=== PATIENT | female | born 1955 | race Caucasian/White ===

== ENCOUNTER 2017-03-21 18:42 | Inpatient (IN) | payer OTHER ==
[~2017-03-21] VITALS: Ht 170.2 cm; Wt 68.2 kg
[~2017-03-21 18:42] MED LIST: ATOR10TA88 PO; SODICRE2 OR; TRMCR130WC TOP
[2017-03-21] MEDS ORDERED: ANAS1TAB19 PO (18:53)
[2017-03-21] MEDS ORDERED: CHOL2000 PO (18:53)
[2017-03-21] MEDS ORDERED: SODIUM CHLORIDE 0.9% 1000ML 1,000 ML IV STA (19:15)
[2017-03-21] MEDS ORDERED: KETOROLAC TROMETHAMINE 15 MG/ML VIAL IV STA (19:15)
[2017-03-21 19:29] LABS: BASO % 0.5 %; BASO ABS # 0.04 K/uL (0-0.2); COMPLETE YES; EOS % 1.9 %; HEMATOCRIT 39.6 % (37-47); IG% 0.2 %; LYMPH % 28.1 %; LYMPH ABS # 2.33 K/uL (1.2-3.4); MEAN CELL VOLUME 90.8 fL (80-100); MEAN CORPUSCULAR HEMOGLOBIN 30.5 pg (25-34); MEAN CORPUSCULAR HGB CONC 33.6 g/dl (32-36); MEAN PLATELET VOLUME 10.1 fL (7.4-10.4); MONO % 8.2 %; NEUT % 61.1 %; PLATELET COUNT 233 K/uL (130-400); RED BLOOD COUNT 4.36 M/uL (4.2-5.4); WHITE BLOOD COUNT 8.29 K/uL (4.8-10.8)
[2017-03-21] MEDS ORDERED: OPTIRAY 320 IV PRN (19:30)
[2017-03-21 19:32] LABS: URINE APPEARANCE CLEAR (CLEAR); URINE BILIRUBIN NEG (NEG); URINE COLOR YELLOW; URINE EPITHELIAL CELL AUTO 0-5 /lpf (0-5); URINE NITRITE NEG (NEG); URINE SPECIFIC GRAVITY 1.013 (1.000-1.030); UROBILINOGEN NEG (NEG); ZZUR CULT IF INDIC CLEAN CATCH NO
[2017-03-21 19:33] LABS: MANUAL MICROSCOPIC REQUIRED? NO; REVIEW REQ? NO
[2017-03-21 19:37] LABS: BUN/CREATININE RATIO 19.6 (10-20); CALCIUM 9.9 mg/dl (8.5-10.1); CREATININE 0.77 mg/dl (0.60-1.20); POTASSIUM 3.6 mmol/L (3.5-5.1)
[2017-03-21] MEDS ORDERED: MoRPHine SULFATE 2 MG/ML CARP IV STA (19:47)
[2017-03-21] MEDS ORDERED: ONDANSETRON INJ 2 MG/ML 2 ML VIAL IV STA (19:47)
--- NOTE | 2017-03-21 20:42 | DIAGNOSTIC IMAGING REPORT ---
GALLBLADDER-ABD LIMITED CLINICAL HISTORY: 62 years-old Female presenting with ruq/epigastric pain, elevated LFTs. TECHNIQUE: Real-time grayscale and limited color Doppler ultrasound imaging of the abdomen limited to the right upper quadrant was performed. COMPARISON: None. FINDINGS: Pancreas: Visualized portions of the pancreatic head and body normal. Liver: Normal echogenicity and echotexture. The liver measures 14.8 cm in maximal sagittal dimension. No sonographic evidence of hepatic mass. Main portal vein patent with normal directional flow. Biliary: No intrahepatic biliary ductal dilatation. Common bile duct measures up to 8 mm in diameter. Gallbladder: Gallbladder wall thickening up to 4 mm. Gallstones noted. Trace pericholecystic fluid. No hyperemia of the gallbladder wall on color Doppler. Sonographic Champagne's sign negative. Right kidney: Normal in appearance and size, measuring 10.8 cm. No hydronephrosis. 5.1 cm simple cyst noted in the interpolar region. Ascites: None. IMPRESSION: 1. Cholelithiasis with equivocal findings for cholecystitis. The presence of extrahepatic biliary ductal dilatation could suggest distal biliary obstruction, although choledocholithiasis not sonographically apparent. Further evaluation with MRCP could be considered. If there is continuing clinical concern for cholecystitis, nuclear medicine hepatobiliary scan could be obtained. Electronically signed by: João Quinn M.D. 03/21/2017 8:40 PM Dictated Date/Time: 03/21/2017 8:37 PM
[2017-03-21] MEDS: LACTATED RINGER'S 1000ML 1,000 ML IV SCH (21:47)
--- NOTE | 2017-03-21 21:55 | EMERGENCY ROOM VISIT NOTE ---
History First contact with patient: 18:51 Chief Complaint: ABDOMINAL PAIN Stated Complaint: ABDOMINAL PAIN RADIATING TO BACK Nursing Triage Summary: Patient states "I started having pain just above my umbilicus on Friday. The pain was pretty severe and I was eating crackers, burnt toast and tums to see if that would help. The pain persisted into Friday and I started vomiting then too. After vomiting, the pain subsided. I was fine yesterday. After eating salad for lunch today, the pain started up again. I am to be leaving the country tomorrow so I wanted to be checked." Patient reports normal BMs. History of Present Illness The patient is a 62 year old female who presents to the Emergency Room with complaints of abdominal pain. The patient states that 3 days ago, she developed pain in her upper abdomen after eating lunch. She states that the pain radiated from her upper abdomen through to her back. She took Tums and ate burned toast without relief of the pain. She states the pain persisted throughout the night. When she woke up the next morning, she became nauseous and vomited one time. She states that after she vomited, her abdominal pain improved. She reports she felt okay the next day, but her pain returned after eating a lunch of a yogurt and salad today. The pain is just above her umbilicus and radiates into the back. She rates the discomfort a 6/10. She denies any aggravating or alleviating factors. She denies any nausea at this time. She denies urinary symptoms, chest pain, shortness of breath, changes in bowel movement or fevers. She denies any history of abdominal surgeries. She has had a previous lumpectomy for breast cancer and is otherwise very healthy. She denies any recent alcohol use. Review of Systems A complete 10 point review of systems was reviewed with the patient with pertinent positives and negatives as per history of present illness. All else were negative. Past Medical/Surgical History Medical Problems: (1) Pancreatitis Social History Smoking Status: Former Smoker Current/Historical Medications Scheduled Anastrozole (Arimidex), 1 MG PO QPM Atorvastatin (Lipitor), 1 TAB PO DAILY Cholecalciferol (Vitamin D3), 2,000 INTER.UNIT PO DAILY Physical Exam Vital Signs Date Time Temp Pulse Resp B/P (MAP) Pulse Ox O2 Delivery O2 Flow Rate FiO2 03/21/17 20:48 107 18 146/73 98 Room Air 03/21/17 18:45 36.6 94 16 162/81 98 Room Air Physical Exam VITALS: Vitals are noted on the nurse's note and reviewed by myself. Vital signs stable. GENERAL: This is a 62-year-old female, in no acute distress, nondiaphoretic, well-developed well-nourished. EARS: External auditory canals clear, tympanic membranes pearly villanueva without erythema or effusion bilaterally. EYES: Pupils equal round and reactive to light and accommodation. MOUTH: Mucous membranes moist. NECK: Supple without nuchal rigidity. HEART: Regular rate and rhythm without murmurs gallops or rubs. LUNGS: Clear to auscultation bilaterally without wheezes, rales or rhonchi. ABDOMEN: Positive bowel sounds x 4. Soft, nondistended. There is moderate tenderness to palpation and slight guarding in the epigastric region. Negative Champagne sign. NEURO: Patient was alert and oriented to person place and time. Medical Decision & Procedures ER Provider Diagnostic Interpretation: GALLBLADDER-ABD LIMITED CLINICAL HISTORY: 62 years-old Female presenting with ruq/epigastric pain, elevated LFTs. TECHNIQUE: Real-time grayscale and limited color Doppler ultrasound imaging of the abdomen limited to the right upper quadrant was performed. COMPARISON: None. FINDINGS: Pancreas: Visualized portions of the pancreatic head and body normal. Liver: Normal echogenicity and echotexture. The liver measures 14.8 cm in maximal sagittal dimension. No sonographic evidence of hepatic mass. Main portal vein patent with normal directional flow. Biliary: No intrahepatic biliary ductal dilatation. Common bile duct measures up to 8 mm in diameter. Gallbladder: Gallbladder wall thickening up to 4 mm. Gallstones noted. Trace pericholecystic fluid. No hyperemia of the gallbladder wall on color Doppler. Sonographic Champagne's sign negative. Right kidney: Normal in appearance and size, measuring 10.8 cm. No hydronephrosis. 5.1 cm simple cyst noted in the interpolar region. Ascites: None. IMPRESSION: 1. Cholelithiasis with equivocal findings for cholecystitis. The presence of extrahepatic biliary ductal dilatation could suggest distal biliary obstruction, although choledocholithiasis not sonographically apparent. Further evaluation with MRCP could be considered. If there is continuing clinical concern for cholecystitis, nuclear medicine hepatobiliary scan could be obtained. Laboratory Results 9/15/17 19:02 Red Blood Count 4.36, Mean Corpuscular Volume 90.8, Mean Corpuscular Hemoglobin 30.5, Mean Corpuscular Hemoglobin Concent 33.6, Mean Platelet Volume 10.1, Neutrophils (%) (Auto) 61.1, Lymphocytes (%) (Auto) 28.1, Monocytes (%) (Auto) 8.2, Eosinophils (%) (Auto) 1.9, Basophils (%) (Auto) 0.5, Neutrophils # (Auto) 5.06, Lymphocytes # (Auto) 2.33, Monocytes # (Auto) 0.68, Eosinophils # (Auto) 0.16, Basophils # (Auto) 0.04 03/21/17 19:02 Test 03/21/17 18:55 03/21/17 19:02 Urine Color YELLOW Urine Appearance CLEAR (CLEAR) Urine pH 8.0 (4.5-7.5) Urine Specific [place] 1.013 (1.000-1.030) Urine Protein NEG (NEG) Urine Glucose (UA) NEG (NEG) Urine Ketones NEG (NEG) Urine Occult Blood TRACE (NEG) Urine Nitrite NEG (NEG) Urine Bilirubin NEG (NEG) Urine Urobilinogen NEG (NEG) Urine Leukocyte Esterase TRACE (NEG) Urine WBC (Auto) 1-5 /hpf (0-5) Urine RBC (Auto) 0-4 /hpf (0-4) Urine Hyaline Casts (Auto) 0 /lpf (0-5) Urine Epithelial Cells (Auto) 0-5 /lpf (0-5) Urine Bacteria (Auto) NEG (NEG) White Blood Count 8.29 K/uL (4.8-10.8) Red Blood Count 4.36 M/uL (4.2-5.4) Hemoglobin 13.3 g/dL (12.0-16.0) Hematocrit 39.6 % (37-47) Mean Corpuscular Volume 90.8 fL (80-100) Mean Corpuscular Hemoglobin 30.5 pg (25-34) Mean Corpuscular Hemoglobin Concent 33.6 g/dl (32-36) Platelet Count 233 K/uL (130-400) Mean Platelet Volume 10.1 fL (7.4-10.4) Neutrophils (%) (Auto) 61.1 % Lymphocytes (%) (Auto) 28.1 % Monocytes (%) (Auto) 8.2 % Eosinophils (%) (Auto) 1.9 % Basophils (%) (Auto) 0.5 % Neutrophils # (Auto) 5.06 K/uL (1.4-6.5) Lymphocytes # (Auto) 2.33 K/uL (1.2-3.4) Monocytes # (Auto) 0.68 K/uL (0.11-0.59) Eosinophils # (Auto) 0.16 K/uL (0-0.5) Basophils # (Auto) 0.04 K/uL (0-0.2) RDW Standard Deviation 40.8 fL (36.4-46.3) RDW Coefficient of Variation 12.1 % (11.5-14.5) Immature Granulocyte % (Auto) 0.2 % Immature Granulocyte # (Auto) 0.02 K/uL (0.00-0.02) Anion Gap 7.0 mmol/L (3-11) Est Creatinine Clear Calc Drug Dose 73.2 ml/min Estimated GFR () 96.6 Estimated GFR (Non- 83.3 BUN/Creatinine Ratio 19.6 (10-20) Calcium Level 9.9 mg/dl (8.5-10.1) Magnesium Level 2.0 mg/dl (1.8-2.4) Total Bilirubin 1.1 mg/dl (0.2-1) Aspartate Amino Transf (AST/SGOT) 571 U/L (15-37) Alanine Aminotransferase (ALT/SGPT) 993 U/L (12-78) Alkaline Phosphatase 385 U/L (45-117) Total Protein 8.3 gm/dl (6.4-8.2) Albumin 4.2 gm/dl (3.4-5.0) Globulin 4.1 gm/dl (2.5-4.0) Albumin/Globulin Ratio 1.0 (0.9-2) Amylase Level 1955 U/L (25-115) Lipase 86854 U/L (73-393) Thyroid Stimulating Hormone (TSH) 1.700 uIu/ml (0.300-4.500) Medications Administered Medications (Trade) Dose Ordered Sig/Jorge Route Start Time Stop Time Status Last Admin Dose Admin Sodium Chloride 1,000 ml @ 999 mls/hr Q1H1M STAT IV 03/21/17 19:15 03/21/17 20:15 DC 03/21/17 19:28 999 MLS/HR Ondansetron HCl (Zofran Inj) 4 mg NOW STAT IV 03/21/17 19:47 03/21/17 19:48 DC 03/21/17 19:53 4 MG Morphine Sulfate (MoRPHine SULFATE INJ) 2 mg NOW STAT IV 03/21/17 19:47 03/21/17 19:48 DC 03/21/17 19:53 2 MG Lactated Ringer's 1,000 ml @ 200 mls/hr Q5H IV 03/21/17 21:30 04/20/17 21:29 03/21/17 21:47 200 MLS/HR ED Course The patient was evaluated as above. Labs were drawn and IV access was obtained. Patient was medicated with 1 L normal saline solution. She declined any analgesics at this time. Patient was reevaluated and laboratory findings were discussed. The patient was tearful and seemed to be in significant pain. She was agreeable to 2 mg morphine IV for pain. 2 mg morphine and 4 mg Zofran were ordered for the patient. Right upper quadrant ultrasound was performed and read by radiology as above. All findings were discussed with the patient. She is agreeable to admission. Case was discussed with the [facility], Dr. Demarco. They agreed to evaluate the patient for admission. Medical Decision Differential diagnosis includes cholecystitis, choledocholithiasis, pancreatitis , acute hepatitis, bowel obstruction, colitis, peptic ulcer disease, gastroenteritis, among others. The patient is a 62-year-old female who presents today complaining of abdominal pain. Labs revealed significant elevation of LFTs and lipase of greater than 28 ,000. No leukocytosis. Ultrasound of the right upper quadrant was performed and did show gallstones and equivocal cholecystitis. I do feel that given the patient's laboratory findings, she likely has choledocholithiasis and will need MRCP/ERCP. Pain was controlled in the emergency department with just 1 mg of morphine. Patient was admitted to the [facility] service for further workup and treatment. The patient's case was reviewed with Dr. Sheffield, ED attending physician, who agreed with my assessment and treatment plan. Medication Reconcilliation Current Medication List: was personally reviewed by me Blood Pressure Screening Patient's blood pressure: Elevated blood pressure Blood pressure disposition: Elevated BP felt to be situational Impression Primary Impression: Acute pancreatitis Additional Impression: Elevated LFTs Acute pancreatitis likely secondary to choledocholithiasis Departure Information Referrals Bernadette Potts M.D. (PCP) Patient Instructions My [facility] Problem Qualifiers Primary Impression: Acute pancreatitis Pancreatitis type: biliary Acute pancreatitis complication: unspecified Qualified Codes: K85.10 - Biliary acute pancreatitis without necrosis or infection
[2017-03-21] MEDS ORDERED: PROMETHAZINE HCL INJ 12.5 MG in SODIUM CHLORIDE 0.9% 50ML 50 ML IV PRN (23:00)
[2017-03-21] MEDS ORDERED: HYDROmorphone INJ 0.5 MG/0.5 ML SYR IV PRN (23:00)
[2017-03-21] MEDS ORDERED: TRAMADOL HCL 50 MG TAB PO PRN (23:00)
[2017-03-21] MEDS ORDERED: ACETAMINOPHEN 325 MG TAB PO PRN (23:00)
[2017-03-21] MEDS ORDERED: LORAZEPAM 2 MG/ML 1 ML VIAL IV PRN (23:00)
[2017-03-21] MEDS ORDERED: KETOROLAC TROMETHAMINE 15 MG/ML VIAL IV. PRN (23:00)
[2017-03-21 23:55] VITALS: BP 142/81; PULSE 93; TEMP 37; O2SAT 96; Ht 170.2 cm; Wt 68.2 kg
[2017-03-22] MEDS ORDERED: LORAZEPAM INJ 0.5 MG in SYRINGE 0.75 ML IV PRN (00:15)
[2017-03-22 01:26] VITALS: BP 142/81; PULSE 93; TEMP 37; O2SAT 96
[2017-03-22] MEDS: LACTATED RINGER'S 1000ML 1,000 ML IV SCH ×5 (02:18→22:38)
--- NOTE | 2017-03-22 02:34 | HISTORY & PHYSICAL EXAMINATION ---
DATE OF ADMISSION: 03/21/2017 PRIMARY CARE DOCTOR: Dr. Potts. CHIEF COMPLAINT: Abdominal pain. History obtained from patient and records. HISTORY OF PRESENT ILLNESS: Medical history is significant for breast cancer L status post radiation, ongoing hormonal therapy, hyperlipidemia, recurrent epistaxis and past tobacco abuse. A few days ago the patient noted epigastric discomfort, achy, going to her back , with nausea and vomiting. Good bowel movement. No fever, some chills. She denies fatty food intake. Symptoms resolved overnight. Patient held off on going to the ER for evaluation because a contemplated trip to [place] this weekend Patient had recurrence of discomfort today, but not as intense. In retrospect, px reckons she has had intermittent, self-limiting episodes of discomfort over the last 2 days usually associated with fatty food intake. Patient decided to go to the Emergency Room. MEDICAL HISTORY: As above. Intermittent nasopharyngeal bleeding for which patient has [facility]. MRI was unremarkable. Nasopharynx was remarkable. Transient episode this week. SURGERIES: lumpectomy at [facility]. Ovary/oviduct removal for benign paraovarian tumor. HOME MEDICATIONS: Include; Arimidex, Lipitor and vitamin D3. ALLERGIES: DOXYCYCLINE AND SULFA. FAMILY HISTORY: Heart disease, cerebral aneurysm, diabetes, rectal cancer and breast cancer. PERSONAL AND SOCIAL HISTORY: Past tobacco use. No chronic intake of alcoholic beverages. 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 REVIEW OF SYSTEMS: As per HPI. all other ROS negative. PHYSICAL EXAMINATION: VITAL SIGNS: Blood pressure was noted to be 106/64, pulse rate 90, RR 18 temperature 36.6 and sats 97 on room air. GENERAL: Noted to be pleasant, in no respiratory distress. Looks younger for stated age. SKIN: Normal color. HEENT: Rose palpebral conjunctivae. Dry mucosa. NECK: No JVD. Supple. CHEST: Clear to auscultation. HEART: Regular rate and rhythm. ABDOMEN: Some distention. No overt tenderness. EXTREMITIES: No edema. No tenderness NEUROLOGIC: No gross focality. LABORATORIES: Hemoglobin was noted to be 13.8, white cell count cells 10 platelets 230. Sodium 140, potassium 3.6, chloride 101, CO2 32, BUN 15, creatinine 0.77 and glucose 111. AST 571, ALT 993 and alk phos 385. Lipase was noted to be 28,000. Gallbladder ultrasound showed cholelithiasis with equivocal cholecystitis, extrahepatic biliary ductal dilatation without evident choledocholithiasis. Further evaluation w/ MRCP recommended. ASSESSMENT: 1. Pancreatitis likely secondary to biliary etio possible common bile duct obstruction. 2. Left breast cancer status post surgery, radiation, ongoing hormonal therapy 3. recurrent epistaxis Recent episode this week outpatient ENT workup unremarkable Hemoglobin stable. 4. Past tobacco abuse PLAN: [facility] analgesia, bowel rest, IV fluids Follow lipase, MRCP GI consult RE pancreatitis Cholecystectomy at some point. DVT prophylaxis. SCDs RE intermittent epistaxis. Full code. MTDD
[2017-03-22 07:45] VITALS: BP 109/70; PULSE 85; TEMP 36.6; O2SAT 98
[2017-03-22 08:21] LABS: BUN/CREATININE RATIO 13.4 (10-20); CALCIUM 9.1 mg/dl (8.5-10.1); CREATININE 0.79 mg/dl (0.60-1.20); POTASSIUM 4.5 mmol/L (3.5-5.1)
--- NOTE | 2017-03-22 10:44 | GASTROINTESTINAL CONSULTATION ---
DATE OF CONSULTATION: 03/22/2017 REQUESTING PHYSICIAN: Dr. Demarco. CHIEF COMPLAINT: Abdominal discomfort. HISTORY OF PRESENT ILLNESS: The patient is a 62-year-old female with a past medical history notable for breast cancer, who presented to the Emergency Room yesterday evening for discomfort of the abdomen. She noted that these symptoms have been ongoing for several weeks, but been progressively becoming worse over the last 2-3 days. The patient reported to the Emergency Room and was found to have a significant elevation of her liver associated enzymes and pancreatic enzymes. Imaging study revealed gallstones within the gallbladder and an 8-mm common bile duct, but no evidence of stones within it. The patient denies having fevers, chills, or sweats today. She denies having a history of jaundice or alteration of her bowel habits. PAST MEDICAL HISTORY: 1. Breast cancer. 2. Hypercholesterolemia. 3. Prior tobacco use. OUTPATIENT MEDICATIONS: Arimidex, Lipitor, and vitamin D. ALLERGIES: DOXYCYCLINE AND SULFA. FAMILY HISTORY: Heart disease, cerebral aneurysm, and diabetes. SOCIAL HISTORY: The patient is a prior smoker. No current smoking. The patient denies drinking alcohol. 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 PAST SURGICAL HISTORY: Left lumpectomy at [facility]. No abdominal surgeries. REVIEW OF SYSTEMS: GENERAL: No fevers and no chills. CARDIAC: No chest pain and no palpitations. PULMONARY: No shortness of breath or cough. GASTROINTESTINAL: Please see history of present illness. GENITOURINARY: No dysuria. MUSCULOSKELETAL: No new joint pains or muscle pains. ENDOCRINE: No polyuria and no polyphagia. DERMATOLOGY: No rashes. No itching. NEUROLOGIC: No double vision noted. ENT: No difficulty swallowing noted. PHYSICAL EXAMINATION: VITAL SIGNS: Temperature 36.6, pulse is 85, respiratory rate is 16, blood pressure is 109/70, and pulse ox is 98% on room air. HEENT: No scleral icterus noted. No JVD noted. LUNGS: Clear to auscultation. CARDIAC: Regular rate and rhythm. ABDOMEN: Soft. Mild epigastric tenderness. Mild right upper quadrant tenderness. EXTREMITIES: No edema. SKIN: No spider nevi noted. No petechiae noted. NEUROLOGIC: Cranial nerves grossly intact. Motor grossly intact. No asterixis noted. LABORATORIES: White blood cell count 8.2, hemoglobin 13.3, hematocrit is 39.6, and platelet count is 233. Sodium today 142, potassium 4.5, chloride is 107, BUN is 11, creatinine is 0.79, calcium is 9.1, and magnesium is 2.0. Bilirubin 0.7. AST 475 from 571. ALT 831 from 993. Alkaline phosphatase 311 from 385. Albumin is 3.4. Amylase 1955 on admission. Lipase 3917 this morning from [id number] on admission. IMAGING STUDY: Right upper quadrant ultrasound, gallstones noted in the gallbladder. Common bile duct 8 mm. No obvious stones seen. IMPRESSION: A 62-year-old female presenting with signs and symptoms suggestive of gallstone pancreatitis. I would suggest that we do further evaluation with an MRCP. If the MRCP shows evidence of a common bile duct stone, we would offer ERCP either Friday or early Friday. RECOMMENDATIONS: 1. N.p.o. 2. Continue with aggressive IV hydration as you are doing. 3. MRCP ordered and awaiting results. If positive, would suggest ERCP. 4. Consider general surgery consultation. Please call with any questions or concerns. FABIAN
--- NOTE | 2017-03-22 10:54 | DIAGNOSTIC IMAGING REPORT ---
MRCP CLINICAL HISTORY: Epigastric pain, elevated liver enzymes, nausea, vomiting, gallstones, pancreatitis. COMPARISON STUDY: Biliary ultrasound dated 03/21/2017 FINDINGS: There is a 5.3 cm right renal cyst. There is no evidence of intra or extrahepatic biliary ductal dilatation. Common bile duct measures 4.3 mm in maximal diameter. Pancreatic duct appears normal. There are multiple gallstones present. There is pericholecystic fluid. If there is clinical concern over the presence of cystic duct obstruction, a nuclear medicine hepatobiliary study could be obtained in follow-up. No peripancreatic fluid collections are visualized. There is a 3 mm cystic structure within the pancreatic head, likely representing a sidebranch IPMN. IMPRESSION: 1. Cholelithiasis and pericholecystic fluid. 2. No ductal dilatation. No common bile duct calculi identified. 3. 5.3 cm right renal cyst 4. 3 mm cyst within the pancreatic head, likely are presenting a side branch IPMN Electronically signed by: Mynor Bauer M.D. 03/22/2017 10:53 AM Dictated Date/Time: 03/22/2017 10:46 AM
--- NOTE | 2017-03-22 14:09 | Medical Consult ---
Consultation Date of Consultation: Mar 22, 2017. Attending Physician: Dixon Buchanan MD Reason for Consultation: gallstone pancreatitis History of Present Illness 62 year old female presented to the ED last night with abdominal pain. Started Friday, sharp epigastric pain that radiated to her back with nausea. Endorsed dark urine. Pain resolved but recurred Friday but without nausea. No prior episodes, but does report postprandial RUQ pain with radiation to shoulders after fatty meals on rare occasions in past. Lipase elevated as were LFT's, RUQUS showed stones and CBD dilation. MRCP with no choledocholithiasis but 3mm possible side branch IPMN. Past Medical/Surgical History Past Medical history: breast cancer s/p lumpectomy and SNLBx, radiation therapy and currently on aromatase inhibitor HLP Pshx: salpingo oophorectomy for ectopic, Left breast lumpectomy with SNLBx Social History Smoking Status: Never Smoker Smokeless Tobacco Use: No Alcohol Use: occasionally Drug Use: none Marital Status: Allergies Coded Allergies: Doxycycline (Verified Allergy, Unknown, Swelling/tingling of lips, 03/21/17 ) Sulfa Antibiotics (Verified Allergy, Unknown, Hives, 03/21/17) Home Medications Active Reported Vitamin D3 (Cholecalciferol) 2,000 Unit Cap 2,000 Inter.unit PO DAILY Arimidex (Anastrozole) 1 Mg Tab 1 Mg PO QPM Lipitor (Atorvastatin Calcium) 10 Mg Tab 1 Tab PO DAILY 30 Days Current Inpatient Medications Current Inpatient Medications Medications (Trade) Dose Ordered Sig/Jorge Route Start Time Stop Time Status Last Admin Dose Admin Ioversol (Optiray 320) 100 ml UD PRN IV 03/21/17 19:30 03/25/17 19:29 Lactated Ringer's 1,000 ml @ 200 mls/hr Q5H IV 03/21/17 21:30 04/20/17 21:29 03/22/17 12:39 200 MLS/HR Acetaminophen (Tylenol Tab) 325 mg Q6H PRN PO 03/21/17 23:00 04/20/17 22:59 Anastrozole (Arimidex Tab) 1 mg QPM PO 03/22/17 21:00 04/21/17 20:59 Ondansetron HCl (Zofran Inj) 4 mg Q6H PRN IV 03/21/17 23:00 04/20/17 22:59 Tramadol HCl (Ultram Tab) 25 mg Q6H PRN PO 03/21/17 23:00 04/20/17 22:59 Ketorolac Tromethamine (Toradol Inj) 15 mg Q6H PRN IV. 03/21/17 23:00 03/26/17 22:59 Hydromorphone HCl (Dilaudid Inj) 0.5 mg Q4H PRN IV 03/21/17 23:00 04/04/17 22:59 Promethazine HCl 12.5 mg/Sodium Chloride 50.5 ml @ 204 mls/hr Q6H PRN IV 03/21/17 23:00 04/20/17 22:59 Lorazepam (Ativan Inj) 0.5 mg Q4H PRN IV 03/21/17 23:00 04/20/17 22:59 Lorazepam 0.5 mg/ Syringe 1 ml @ 1 mls/min Q4H PRN IV 03/22/17 00:15 04/21/17 00:14 Review of Systems Constitutional: No fever, No chills, No sweats, No weight loss, No weakness, No fatigue, No problem reported Eyes: No worsening of vision, No eye pain, No redness, No discharge, No diplopia, No problem reported ENT: No hearing loss, No unusual epistaxis, No nasal symptoms, No sore throat, No tinnitus, No dental problems, No trouble swallowing, No problem reported Respiratory: No cough, No sputum, No wheezing, No shortness of breath, No dyspnea on exertion, No dyspnea at rest, No hemoptysis, No problem reported Cardiovascular: No chest pain, No orthopnea, No PND, No edema, No claudication , No palpitations, No problem reported Abdomen: + pain, + nausea, + vomiting, No diarrhea, No constipation Musculoskeletal: No joint pain, No muscle pain, No swelling, No calf pain, No problem reported Neurologic: No memory loss, No paralysis, No weakness, No numbness/tingling, No vertigo, No balance problems, No problem reported Psychiatric: No depression symptoms, No anhedonism, No anxiety, No insomnia, No substance abuse, No problem reported Endocrine: No fatigue, No excessive thirst, No excessive urination, No problem reported Hematologic / Lymphatic: No abnormal bleeding/bruising, No clotting problems, No swollen lymph nodes, No night sweats, No problem reported Integumentary: No rash, No itch, No new/changing skin lesions, No color change , No bleeding, No problem reported Allergic / Immunologic: No environmental allergies, No seasonal allergies, No pet sensitivities, No food allergies, No hives, No frequent infections, No poor healing, No prolonged convalescence, No problem reported Physical Exam Date Time Temp Pulse Resp B/P (MAP) Pulse Ox O2 Delivery O2 Flow Rate FiO2 03/22/17 08:00 Room Air 03/22/17 07:45 36.6 85 16 109/70 (83) 98 Room Air 03/22/17 01:26 37.0 93 18 142/81 (101) 96 Room Air 03/21/17 23:55 37.0 93 18 142/81 96 Room Air 03/21/17 23:25 90 16 136/64 97 03/21/17 20:48 107 18 146/73 98 Room Air 03/21/17 18:45 36.6 94 16 162/81 98 Room Air General Appearance: WD/WN, no apparent distress Head: normocephalic, atraumatic Eyes: normal inspection, PERRL, EOMI ENT: normal ENT inspection, hearing grossly normal, TMs normal Neck: supple, no adenopathy, no JVD Respiratory/Chest: chest non-tender, lungs clear, normal breath sounds, no respiratory distress Cardiovascular: regular rate, rhythm, no edema, no gallop, normal peripheral pulses Abdomen/GI: normal bowel sounds, soft, no organomegaly, no pulsatile mass, + tenderness (minimal epigastric tenderness) Back: normal inspection, no CVA tenderness Extremities/Musculoskelatal: normal inspection, no calf tenderness, no pedal edema 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, no motor/sensory deficits, alert, normal mood/affect, oriented x 3 Skin: normal color, warm/dry, no rash Lymphatic: no adenopathy Laboratory Results Last 24 Hours Test 03/21/17 18:55 03/21/17 19:02 03/22/17 07:15 Urine Color YELLOW Urine Appearance CLEAR Urine pH 8.0 Urine Specific [place] 1.013 Urine Protein NEG Urine Glucose (UA) NEG Urine Ketones NEG Urine Occult Blood TRACE Urine Nitrite NEG Urine Bilirubin NEG Urine Urobilinogen NEG Urine Leukocyte Esterase TRACE Urine WBC (Auto) 1-5 /hpf Urine RBC (Auto) 0-4 /hpf Urine Hyaline Casts (Auto) 0 /lpf Urine Epithelial Cells (Auto) 0-5 /lpf Urine Bacteria (Auto) NEG White Blood Count 8.29 K/uL Red Blood Count 4.36 M/uL Hemoglobin 13.3 g/dL Hematocrit 39.6 % Mean Corpuscular Volume 90.8 fL Mean Corpuscular Hemoglobin 30.5 pg Mean Corpuscular Hemoglobin Concent 33.6 g/dl Platelet Count 233 K/uL Mean Platelet Volume 10.1 fL Neutrophils (%) (Auto) 61.1 % Lymphocytes (%) (Auto) 28.1 % Monocytes (%) (Auto) 8.2 % Eosinophils (%) (Auto) 1.9 % Basophils (%) (Auto) 0.5 % Neutrophils # (Auto) 5.06 K/uL Lymphocytes # (Auto) 2.33 K/uL Monocytes # (Auto) 0.68 K/uL Eosinophils # (Auto) 0.16 K/uL Basophils # (Auto) 0.04 K/uL RDW Standard Deviation 40.8 fL RDW Coefficient of Variation 12.1 % Immature Granulocyte % (Auto) 0.2 % Immature Granulocyte # (Auto) 0.02 K/uL Sodium Level 140 mmol/L 142 mmol/L Potassium Level 3.6 mmol/L 4.5 mmol/L Chloride Level 101 mmol/L 107 mmol/L Carbon Dioxide Level 32 mmol/L 31 mmol/L Anion Gap 7.0 mmol/L 4.0 mmol/L Blood Urea Nitrogen 15 mg/dl 11 mg/dl Creatinine 0.77 mg/dl 0.79 mg/dl Est Creatinine Clear Calc Drug Dose 73.2 ml/min 72.7 ml/min Estimated GFR () 96.6 93.6 Estimated GFR (Non- 83.3 80.8 BUN/Creatinine Ratio 19.6 13.4 Random Glucose 111 mg/dl 86 mg/dl Calcium Level 9.9 mg/dl 9.1 mg/dl Magnesium Level 2.0 mg/dl Total Bilirubin 1.1 mg/dl 0.7 mg/dl Aspartate Amino Transf (AST/SGOT) 571 U/L 475 U/L Alanine Aminotransferase (ALT/SGPT) 993 U/L 831 U/L Alkaline Phosphatase 385 U/L 311 U/L Total Protein 8.3 gm/dl 6.8 gm/dl Albumin 4.2 gm/dl 3.4 gm/dl Globulin 4.1 gm/dl 3.4 gm/dl Albumin/Globulin Ratio 1.0 1.0 Amylase Level 1955 U/L Lipase 01327 U/L 3917 U/L Thyroid Stimulating Hormone (TSH) 1.700 uIu/ml GALLBLADDER-ABD LIMITED CLINICAL HISTORY: 62 years-old Female presenting with ruq/epigastric pain, elevated LFTs. TECHNIQUE: Real-time grayscale and limited color Doppler ultrasound imaging of the abdomen limited to the right upper quadrant was performed. COMPARISON: None. FINDINGS: Pancreas: Visualized portions of the pancreatic head and body normal. Liver: Normal echogenicity and echotexture. The liver measures 14.8 cm in maximal sagittal dimension. No sonographic evidence of hepatic mass. Main portal vein patent with normal directional flow. Biliary: No intrahepatic biliary ductal dilatation. Common bile duct measures up to 8 mm in diameter. Gallbladder: Gallbladder wall thickening up to 4 mm. Gallstones noted. Trace pericholecystic fluid. No hyperemia of the gallbladder wall on color Doppler. Sonographic Champagne's sign negative. Right kidney: Normal in appearance and size, measuring 10.8 cm. No hydronephrosis. 5.1 cm simple cyst noted in the interpolar region. Ascites: None. IMPRESSION: 1. Cholelithiasis with equivocal findings for cholecystitis. The presence of extrahepatic biliary ductal dilatation could suggest distal biliary obstruction, although choledocholithiasis not sonographically apparent. Further evaluation with MRCP could be considered. If there is continuing clinical concern for cholecystitis, nuclear medicine hepatobiliary scan could be obtained. MRCP CLINICAL HISTORY: Epigastric pain, elevated liver enzymes, nausea, vomiting, gallstones, pancreatitis. COMPARISON STUDY: Biliary ultrasound dated 03/21/2017 FINDINGS: There is a 5.3 cm right renal cyst. There is no evidence of intra or extrahepatic biliary ductal dilatation. Common bile duct measures 4.3 mm in maximal diameter. Pancreatic duct appears normal. There are multiple gallstones present. There is pericholecystic fluid. If there is clinical concern over the presence of cystic duct obstruction, a nuclear medicine hepatobiliary study could be obtained in follow-up. No peripancreatic fluid collections are visualized. There is a 3 mm cystic structure within the pancreatic head, likely representing a sidebranch IPMN. IMPRESSION: 1. Cholelithiasis and pericholecystic fluid. 2. No ductal dilatation. No common bile duct calculi identified. 3. 5.3 cm right renal cyst 4. 3 mm cyst within the pancreatic head, likely are presenting a side branch IPMN Assessment & Plan 62 year old female with likely gallstone pancreatitis and incidental finding of possible 3mm side branch IPMN. We discussed the recommendation for laparoscopic cholecystectomy during hospital stay or in close interval follow up after episode of gallstone pancreatitis. She would be interested in surgery , however she is concerned currently about the IPMN and would like to think about it. We discussed the risks of surgery to include but not limited to bleeding, infection, damage to common bile duct, retained stone, bile leak, conversion to open, need for future or more extensive surgery, damage to surrounding structures, and risks of anesthesia. The patient will think about it and would like to discuss it with Dr. Cadet. Plan: possible laparoscopic cholecystectomy with possible intraoperative cholangiogram during this admission or in short interval follow up once pancreatitis clinically improves continue IVF's, NPO She is interested in going to the IPMN clinic at [facility] for further evaluation Surgery will follow, call with questions or concerns Alejo Voss,
[2017-03-22 15:37] VITALS: BP 110/69; PULSE 83; TEMP 37; O2SAT 99
--- NOTE | 2017-03-22 17:11 | Progress Note ---
Internal Med Progress Note Date of Service: Mar 22, 2017. Provider Documentation: SUBJECTIVE: sitting on the chair comfortably afebrile abdominal pain and nausea resolved no sob no cough OBJECTIVE: Vital Signs-as noted below Exam: General-alert and oriented. Not in distress ENT-normal hearing Neck-no neck masses Lungs-cta b/l no wheezing or crackles Heart-s1 and s2 heard regular rhythm, no murmurs Abdomen-soft bowel sounds present non tender no distension Extremities no edema present no erythema Neuro-alert and oriented moves extremities Lab data as noted below. ASSESSMENT & PLAN: 1. Pancreatitis Most likely gall stone pancreatitis symptroms improved on iv fluids and antiemetics MRCP no CBD stone lfts elevated on presentation improving GI and surgery on board Inpatient vs elective surgery to be determined. 2. Left breast cancer status post surgery, radiation, ongoing hormonal therapy. 3. recurrent epistaxis Recent episode this week outpatient ENT workup unremarkable Hemoglobin stable. 4. IPMN side branch 3mm on mrcp needs close followup. 4. Past tobacco abuse DVT PROPHYLAXIS scds DISPOSITION to be determined Vital Signs: Date Time Temp Pulse Resp B/P (MAP) Pulse Ox O2 Delivery O2 Flow Rate FiO2 03/22/17 16:00 Room Air 03/22/17 15:37 37.0 83 18 110/69 (83) 99 03/22/17 08:00 Room Air 03/22/17 07:45 36.6 85 16 109/70 (83) 98 Room Air 03/22/17 01:26 37.0 93 18 142/81 (101) 96 Room Air 03/21/17 23:55 37.0 93 18 142/81 96 Room Air 03/21/17 23:25 90 16 136/64 97 03/21/17 20:48 107 18 146/73 98 Room Air 03/21/17 18:45 36.6 94 16 162/81 98 Room Air Lab Results: Results Past 24 Hours Test 03/21/17 18:55 03/21/17 19:02 03/22/17 07:15 Range/Units Urine Color YELLOW Urine Appearance CLEAR CLEAR Urine pH 8.0 4.5-7.5 Urine Specific [place] 1.013 1.000-1.030 Urine Protein NEG NEG Urine Glucose (UA) NEG NEG Urine Ketones NEG NEG Urine Occult Blood TRACE NEG Urine Nitrite NEG NEG Urine Bilirubin NEG NEG Urine Urobilinogen NEG NEG Urine Leukocyte Esterase TRACE NEG Urine WBC (Auto) 1-5 0-5 /hpf Urine RBC (Auto) 0-4 0-4 /hpf Urine Hyaline Casts (Auto) 0 0-5 /lpf Urine Epithelial Cells (Auto) 0-5 0-5 /lpf Urine Bacteria (Auto) NEG NEG White Blood Count 8.29 4.8-10.8 K/uL Red Blood Count 4.36 4.2-5.4 M/uL Hemoglobin 13.3 12.0-16.0 g/dL Hematocrit 39.6 37-47 % Mean Corpuscular Volume 90.8 80-100 fL Mean Corpuscular Hemoglobin 30.5 25-34 pg Mean Corpuscular Hemoglobin Concent 33.6 32-36 g/dl Platelet Count 233 130-400 K/uL Mean Platelet Volume 10.1 7.4-10.4 fL Neutrophils (%) (Auto) 61.1 % Lymphocytes (%) (Auto) 28.1 % Monocytes (%) (Auto) 8.2 % Eosinophils (%) (Auto) 1.9 % Basophils (%) (Auto) 0.5 % Neutrophils # (Auto) 5.06 1.4-6.5 K/uL Lymphocytes # (Auto) 2.33 1.2-3.4 K/uL Monocytes # (Auto) 0.68 0.11-0.59 K/uL Eosinophils # (Auto) 0.16 0-0.5 K/uL Basophils # (Auto) 0.04 0-0.2 K/uL RDW Standard Deviation 40.8 36.4-46.3 fL RDW Coefficient of Variation 12.1 11.5-14.5 % Immature Granulocyte % (Auto) 0.2 % Immature Granulocyte # (Auto) 0.02 0.00-0.02 K/uL Sodium Level 140 142 136-145 mmol/L Potassium Level 3.6 4.5 3.5-5.1 mmol/L Chloride Level 101 107 98-107 mmol/L Carbon Dioxide Level 32 31 21-32 mmol/L Anion Gap 7.0 4.0 3-11 mmol/L Blood Urea Nitrogen 15 11 7-18 mg/dl Creatinine 0.77 0.79 0.60-1.20 mg/dl Est Creatinine Clear Calc Drug Dose 73.2 72.7 ml/min Estimated GFR () 96.6 93.6 Estimated GFR (Non- 83.3 80.8 BUN/Creatinine Ratio 19.6 13.4 10-20 Random Glucose 111 86 70-99 mg/dl Calcium Level 9.9 9.1 8.5-10.1 mg/dl Magnesium Level 2.0 1.8-2.4 mg/dl Total Bilirubin 1.1 0.7 0.2-1 mg/dl Aspartate Amino Transf (AST/SGOT) 571 475 15-37 U/L Alanine Aminotransferase (ALT/SGPT) 993 831 12-78 U/L Alkaline Phosphatase 385 311 45-117 U/L Total Protein 8.3 6.8 6.4-8.2 gm/dl Albumin 4.2 3.4 3.4-5.0 gm/dl Globulin 4.1 3.4 2.5-4.0 gm/dl Albumin/Globulin Ratio 1.0 1.0 0.9-2 Amylase Level 1955 25-115 U/L Lipase 23078 3917 73-393 U/L Thyroid Stimulating Hormone (TSH) 1.700 0.300-4.500 uIu/ml
[2017-03-22] MEDS ORDERED: NURSING VERBAL MED ORDER ONE (19:15)
[2017-03-22 20:00] VITALS: O2SAT 99
[2017-03-22] MEDS ORDERED: ANASTROZOLE 1 MG TAB PO SCH (21:00)
[2017-03-23] VITALS: O2SAT 99
[2017-03-23 00:14] VITALS: BP 115/72; PULSE 78; TEMP 36.4; O2SAT 99
[2017-03-23] MEDS: LACTATED RINGER'S 1000ML 1,000 ML IV SCH ×4 (03:28→18:36)
[2017-03-23 07:15] VITALS: BP 123/76; PULSE 99; TEMP 36.8; O2SAT 97
[2017-03-23 07:44] LABS: BASO % 0.6 %; BASO ABS # 0.03 K/uL (0-0.2); COMPLETE YES; EOS % 2.8 %; HEMATOCRIT 38.9 % (37-47); IG% 0.2 %; LYMPH % 35.5 %; LYMPH ABS # 1.75 K/uL (1.2-3.4); MEAN CELL VOLUME 90.3 fL (80-100); MEAN CORPUSCULAR HEMOGLOBIN 29.9 pg (25-34); MEAN CORPUSCULAR HGB CONC 33.2 g/dl (32-36); MEAN PLATELET VOLUME 9.9 fL (7.4-10.4); MONO % 5.9 %; PLATELET COUNT 225 K/uL (130-400); RED BLOOD COUNT 4.31 M/uL (4.2-5.4); WHITE BLOOD COUNT 4.93 K/uL (4.8-10.8)
[2017-03-23 08:18] LABS: BUN/CREATININE RATIO 16.6 (10-20); CALCIUM 9.7 mg/dl (8.5-10.1); CREATININE 0.7 mg/dl (0.60-1.20); MAGNESIUM 1.7 mg/dl (1.8-2.4); POTASSIUM 4.1 mmol/L (3.5-5.1)
--- NOTE | 2017-03-23 09:05 | Gastroenterology Progress Note ---
Progress Note Date of Service: Mar 23, 2017 Subjective Pt evaluation today including: conversation w/ patient, physical exam I saw and evaluated the patient this morning. She does appear to be much better today. She notes that her pain is almost completely gone. Review of Systems Constitutional: No fever, No sweats, No fatigue Respiratory: No cough, No wheezing, No dyspnea on exertion, No dyspnea at rest Cardiac: No chest pain, No PND, No palpitations Abdomen: + problem reported, No nausea, No vomiting Medications Current Inpatient Medications Medications (Trade) Dose Ordered Sig/Jorge Route Start Time Stop Time Status Last Admin Dose Admin Ioversol (Optiray 320) 100 ml UD PRN IV 03/21/17 19:30 03/25/17 19:29 Lactated Ringer's 1,000 ml @ 200 mls/hr Q5H IV 03/21/17 21:30 04/20/17 21:29 03/23/17 03:28 200 MLS/HR Acetaminophen (Tylenol Tab) 325 mg Q6H PRN PO 03/21/17 23:00 04/20/17 22:59 Ondansetron HCl (Zofran Inj) 4 mg Q6H PRN IV 03/21/17 23:00 04/20/17 22:59 Tramadol HCl (Ultram Tab) 25 mg Q6H PRN PO 03/21/17 23:00 04/20/17 22:59 Ketorolac Tromethamine (Toradol Inj) 15 mg Q6H PRN IV. 03/21/17 23:00 03/26/17 22:59 Hydromorphone HCl (Dilaudid Inj) 0.5 mg Q4H PRN IV 03/21/17 23:00 04/04/17 22:59 Promethazine HCl 12.5 mg/Sodium Chloride 50.5 ml @ 204 mls/hr Q6H PRN IV 03/21/17 23:00 04/20/17 22:59 Lorazepam (Ativan Inj) 0.5 mg Q4H PRN IV 03/21/17 23:00 04/20/17 22:59 Lorazepam 0.5 mg/ Syringe 1 ml @ 1 mls/min Q4H PRN IV 03/22/17 00:15 04/21/17 00:14 Anastrozole (Arimidex Tab) 1 mg DAILY@1730 PO 03/23/17 17:30 04/22/17 17:29 Objective Vital Signs Date Time Temp Pulse Resp B/P (MAP) Pulse Ox O2 Delivery O2 Flow Rate FiO2 03/23/17 07:15 36.8 99 18 123/76 (92) 97 Room Air 03/23/17 00:14 36.4 78 18 115/72 (86) 99 Room Air 03/23/17 00:00 99 Room Air 03/22/17 20:00 99 Room Air 03/22/17 16:00 Room Air 03/22/17 15:37 37.0 83 18 110/69 (83) 99 Physical Exam General Appearance: no apparent distress Eyes: PERRL Neck: no JVD Respiratory/Chest: lungs clear Cardiovascular: regular rate, rhythm Neurologic/Psych: alert, oriented x 3 Skin: normal color, no jaundice Laboratory Results Last 24 Hours Test 03/23/17 07:21 White Blood Count 4.93 K/uL Red Blood Count 4.31 M/uL Hemoglobin 12.9 g/dL Hematocrit 38.9 % Mean Corpuscular Volume 90.3 fL Mean Corpuscular Hemoglobin 29.9 pg Mean Corpuscular Hemoglobin Concent 33.2 g/dl Platelet Count 225 K/uL Mean Platelet Volume 9.9 fL Neutrophils (%) (Auto) 55.0 % Lymphocytes (%) (Auto) 35.5 % Monocytes (%) (Auto) 5.9 % Eosinophils (%) (Auto) 2.8 % Basophils (%) (Auto) 0.6 % Neutrophils # (Auto) 2.71 K/uL Lymphocytes # (Auto) 1.75 K/uL Monocytes # (Auto) 0.29 K/uL Eosinophils # (Auto) 0.14 K/uL Basophils # (Auto) 0.03 K/uL RDW Standard Deviation 39.9 fL RDW Coefficient of Variation 12.1 % Immature Granulocyte % (Auto) 0.2 % Immature Granulocyte # (Auto) 0.01 K/uL Sodium Level 139 mmol/L Potassium Level 4.1 mmol/L Chloride Level 103 mmol/L Carbon Dioxide Level 29 mmol/L Anion Gap 7.0 mmol/L Blood Urea Nitrogen 12 mg/dl Creatinine 0.70 mg/dl Est Creatinine Clear Calc Drug Dose 82.1 ml/min Estimated GFR () 108.4 Estimated GFR (Non- 93.5 BUN/Creatinine Ratio 16.6 Random Glucose 69 mg/dl Calcium Level 9.7 mg/dl Magnesium Level 1.7 mg/dl Total Bilirubin 0.8 mg/dl Direct Bilirubin 0.3 mg/dl Aspartate Amino Transf (AST/SGOT) 258 U/L Alanine Aminotransferase (ALT/SGPT) 668 U/L Alkaline Phosphatase 287 U/L Total Protein 7.4 gm/dl Albumin 3.8 gm/dl Lipase 179 U/L Assessment and Plan 62-year-old female admitted with gallstone pancreatitis. Fortunately her MRCP shows no evidence of gallstone within the common bile duct. It does show a small 3 mm cystic lesion which could represent either a pseudocyst or perhaps an I PMN. I did have a long discussion with the patient today with regard to I PMNs and their nature as they are considered precancerous. I would have the patient undergo her cholecystectomy and I would then offer her an outpatient follow-up with either a CT scan or perhaps endoscopic ultrasound in about 6 months. Recommendations Clear liquid diet today Cholecystectomy per Gen. surgery Outpatient follow-up with me in 6 months Please call with any questions or concerns
[2017-03-23] MEDS ORDERED: MAGNESIUM OXIDE 400 MG TAB PO ONE (11:30)
--- NOTE | 2017-03-23 12:13 | Surgery Progress Note ---
Surgery Progress Note Date of Service Mar 23, 2017. Subjective 62 year old female admitted with gallstone pancreatitis. Overall doing well, tolerating clear liquids, pain and nausea gone. She spoke with Dr. Cadet this morning and discussed the findings on MRCP. He recommended follow up imaging in 6 months and offered reassurance. She feels much better and is ready to proceed with cholecystectomy. Objective Vital Signs: Date Time Temp Pulse Resp B/P (MAP) Pulse Ox O2 Delivery O2 Flow Rate FiO2 03/23/17 08:00 Room Air 03/23/17 07:15 36.8 99 18 123/76 (92) 97 Room Air 03/23/17 00:14 36.4 78 18 115/72 (86) 99 Room Air 03/23/17 00:00 99 Room Air 03/22/17 20:00 99 Room Air 03/22/17 16:00 Room Air 03/22/17 15:37 37.0 83 18 110/69 (83) 99 General Appearance: WD/WN, no apparent distress Head: normocephalic, atraumatic Neck: supple, no adenopathy, thyroid normal, no JVD, no carotid bruits, trachea midline Respiratory/Chest: chest non-tender, lungs clear, normal breath sounds, no respiratory distress, no accessory muscle use Cardiovascular: regular rate, rhythm, no edema, no gallop, no JVD, no murmur Abdomen: normal bowel sounds, non tender, non distended, soft, no organomegaly , no pulsatile mass Extremities: normal range of motion, non-tender, normal inspection, no pedal edema, no calf tenderness, normal capillary refill, pelvis stable Laboratory Results: Results Past 24 Hours Test 03/23/17 07:21 Range/Units White Blood Count 4.93 4.8-10.8 K/uL Red Blood Count 4.31 4.2-5.4 M/uL Hemoglobin 12.9 12.0-16.0 g/dL Hematocrit 38.9 37-47 % Mean Corpuscular Volume 90.3 80-100 fL Mean Corpuscular Hemoglobin 29.9 25-34 pg Mean Corpuscular Hemoglobin Concent 33.2 32-36 g/dl Platelet Count 225 130-400 K/uL Mean Platelet Volume 9.9 7.4-10.4 fL Neutrophils (%) (Auto) 55.0 % Lymphocytes (%) (Auto) 35.5 % Monocytes (%) (Auto) 5.9 % Eosinophils (%) (Auto) 2.8 % Basophils (%) (Auto) 0.6 % Neutrophils # (Auto) 2.71 1.4-6.5 K/uL Lymphocytes # (Auto) 1.75 1.2-3.4 K/uL Monocytes # (Auto) 0.29 0.11-0.59 K/uL Eosinophils # (Auto) 0.14 0-0.5 K/uL Basophils # (Auto) 0.03 0-0.2 K/uL RDW Standard Deviation 39.9 36.4-46.3 fL RDW Coefficient of Variation 12.1 11.5-14.5 % Immature Granulocyte % (Auto) 0.2 % Immature Granulocyte # (Auto) 0.01 0.00-0.02 K/uL Sodium Level 139 136-145 mmol/L Potassium Level 4.1 3.5-5.1 mmol/L Chloride Level 103 98-107 mmol/L Carbon Dioxide Level 29 21-32 mmol/L Anion Gap 7.0 3-11 mmol/L Blood Urea Nitrogen 12 7-18 mg/dl Creatinine 0.70 0.60-1.20 mg/dl Est Creatinine Clear Calc Drug Dose 82.1 ml/min Estimated GFR () 108.4 Estimated GFR (Non- 93.5 BUN/Creatinine Ratio 16.6 10-20 Random Glucose 69 70-99 mg/dl Calcium Level 9.7 8.5-10.1 mg/dl Magnesium Level 1.7 1.8-2.4 mg/dl Total Bilirubin 0.8 0.2-1 mg/dl Direct Bilirubin 0.3 0-0.2 mg/dl Aspartate Amino Transf (AST/SGOT) 258 15-37 U/L Alanine Aminotransferase (ALT/SGPT) 668 12-78 U/L Alkaline Phosphatase 287 45-117 U/L Total Protein 7.4 6.4-8.2 gm/dl Albumin 3.8 3.4-5.0 gm/dl Lipase 179 73-393 U/L Assessment & Plan 62 year old female with gallstone pancreatitis and incidental finding of possible 3mm side branch IPMN. She spoke with Dr. Cadet and feels reassured about the findings on MRCP, and is ready to proceed with surgery. We discussed the recommendation for laparoscopic cholecystectomy during hospital stay or in close interval follow up after episode of gallstone pancreatitis. Plan: plan for laparoscopic cholecystectomy with possible intraoperative cholangiogram tomorrow risks of surgery discussed to include but not limited to bleeding, infection, damage to common bile duct, retained stone, bile leak, conversion to open, need for future or more extensive surgery, damage to surrounding structures, and risks of anesthesia. continue clears, NPO after midnight cefoxin hotel lobby concierge to OR Alejo Voss, DO
[2017-03-23] MEDS ORDERED: DOCUSATE SODIUM/SENNA 50/8.6MG TAB PO PRN (15:45)
[2017-03-23 16:14] VITALS: BP 125/77; PULSE 73; TEMP 36.8; O2SAT 99
--- NOTE | 2017-03-23 17:27 | Progress Note ---
Internal Med Progress Note Date of Service: Mar 23, 2017. Provider Documentation: SUBJECTIVE: sitting on the chair comfortably tolerating clears afebrile no abdominal pain or nausea ok for surgery in am OBJECTIVE: Vital Signs-as noted below Exam: General-alert and oriented. Not in distress ENT-normal hearing Neck-no neck masses Lungs-cta b/l no wheezing or crackles Heart-s1 and s2 heard regular rhythm, no murmurs Abdomen-soft bowel sounds present non tender no distension Extremities no edema present no erythema Neuro-alert and oriented moves extremities Lab data as noted below. ASSESSMENT & PLAN: 1. Pancreatitis Most likely gall stone pancreatitis symptoms improved on iv fluids and antiemetics MRCP no CBD stone lfts elevated on presentation improving GI and surgery on board will cut back on fluids tolerating clears npo after midnight for possible surgery in am 2. Left breast cancer status post surgery, radiation, ongoing hormonal therapy. 3. recurrent epistaxis Recent episode this week outpatient ENT workup unremarkable Hemoglobin stable. 4. IPMN side branch 3mm on mrcp needs close followup. 4. Past tobacco abuse DVT PROPHYLAXIS scds DISPOSITION to be determined Vital Signs: Date Time Temp Pulse Resp B/P (MAP) Pulse Ox O2 Delivery O2 Flow Rate FiO2 03/23/17 16:14 36.8 73 18 125/77 (93) 99 Room Air 03/23/17 16:00 Room Air 03/23/17 08:00 Room Air 03/23/17 07:15 36.8 99 18 123/76 (92) 97 Room Air 03/23/17 00:14 36.4 78 18 115/72 (86) 99 Room Air 03/23/17 00:00 99 Room Air 03/22/17 20:00 99 Room Air Lab Results: Results Past 24 Hours Test 03/23/17 07:21 Range/Units White Blood Count 4.93 4.8-10.8 K/uL Red Blood Count 4.31 4.2-5.4 M/uL Hemoglobin 12.9 12.0-16.0 g/dL Hematocrit 38.9 37-47 % Mean Corpuscular Volume 90.3 80-100 fL Mean Corpuscular Hemoglobin 29.9 25-34 pg Mean Corpuscular Hemoglobin Concent 33.2 32-36 g/dl Platelet Count 225 130-400 K/uL Mean Platelet Volume 9.9 7.4-10.4 fL Neutrophils (%) (Auto) 55.0 % Lymphocytes (%) (Auto) 35.5 % Monocytes (%) (Auto) 5.9 % Eosinophils (%) (Auto) 2.8 % Basophils (%) (Auto) 0.6 % Neutrophils # (Auto) 2.71 1.4-6.5 K/uL Lymphocytes # (Auto) 1.75 1.2-3.4 K/uL Monocytes # (Auto) 0.29 0.11-0.59 K/uL Eosinophils # (Auto) 0.14 0-0.5 K/uL Basophils # (Auto) 0.03 0-0.2 K/uL RDW Standard Deviation 39.9 36.4-46.3 fL RDW Coefficient of Variation 12.1 11.5-14.5 % Immature Granulocyte % (Auto) 0.2 % Immature Granulocyte # (Auto) 0.01 0.00-0.02 K/uL Sodium Level 139 136-145 mmol/L Potassium Level 4.1 3.5-5.1 mmol/L Chloride Level 103 98-107 mmol/L Carbon Dioxide Level 29 21-32 mmol/L Anion Gap 7.0 3-11 mmol/L Blood Urea Nitrogen 12 7-18 mg/dl Creatinine 0.70 0.60-1.20 mg/dl Est Creatinine Clear Calc Drug Dose 82.1 ml/min Estimated GFR () 108.4 Estimated GFR (Non- 93.5 BUN/Creatinine Ratio 16.6 10-20 Random Glucose 69 70-99 mg/dl Calcium Level 9.7 8.5-10.1 mg/dl Magnesium Level 1.7 1.8-2.4 mg/dl Total Bilirubin 0.8 0.2-1 mg/dl Direct Bilirubin 0.3 0-0.2 mg/dl Aspartate Amino Transf (AST/SGOT) 258 15-37 U/L Alanine Aminotransferase (ALT/SGPT) 668 12-78 U/L Alkaline Phosphatase 287 45-117 U/L Total Protein 7.4 6.4-8.2 gm/dl Albumin 3.8 3.4-5.0 gm/dl Lipase 179 73-393 U/L
[2017-03-23] MEDS: ANASTROZOLE 1 MG TAB PO SCH (17:35)
[2017-03-23 20:00] VITALS: O2SAT 99
[2017-03-23] MEDS: DOCUSATE SODIUM 100 MG CAP PO SCH (20:00)
[2017-03-23] MEDS: MAGNESIUM OXIDE 400 MG TAB PO SCH (20:27)
[2017-03-24 00:21] VITALS: BP 121/71; PULSE 74; TEMP 36.6; O2SAT 99
[2017-03-24] MEDS: LACTATED RINGER'S 1000ML 1,000 ML IV SCH ×2 (04:41→15:46)
[2017-03-24] MEDS ORDERED: CEFOXITIN IV 2,000 MG in DEXTROSE 5% 50ML 50 ML IV SCH (06:00)
[2017-03-24 07:06] LABS: BASO % 1.2 %; BASO ABS # 0.05 K/uL (0-0.2); COMPLETE YES; EOS % 2.9 %; HEMATOCRIT 33.6 % (37-47); IG% 0.2 %; LYMPH % 36.4 %; LYMPH ABS # 1.51 K/uL (1.2-3.4); MEAN CELL VOLUME 89.8 fL (80-100); MEAN CORPUSCULAR HEMOGLOBIN 30.2 pg (25-34); MEAN CORPUSCULAR HGB CONC 33.6 g/dl (32-36); MEAN PLATELET VOLUME 9.6 fL (7.4-10.4); MONO % 9.6 %; NEUT % 49.7 %; PLATELET COUNT 188 K/uL (130-400); RED BLOOD COUNT 3.74 M/uL (4.2-5.4); WHITE BLOOD COUNT 4.15 K/uL (4.8-10.8)
[2017-03-24] MEDS: DOCUSATE SODIUM 100 MG CAP PO SCH ×2 (07:13→20:03)
[2017-03-24] MEDS: MAGNESIUM OXIDE 400 MG TAB PO SCH ×2 (07:13→20:03)
[2017-03-24 07:33] LABS: BUN/CREATININE RATIO 11.2 (10-20); CALCIUM 8.7 mg/dl (8.5-10.1); CREATININE 0.68 mg/dl (0.60-1.20); MAGNESIUM 1.9 mg/dl (1.8-2.4); POTASSIUM 3.8 mmol/L (3.5-5.1)
[2017-03-24 07:58] VITALS: BP 116/71; PULSE 80; TEMP 36.6; O2SAT 97
--- NOTE | 2017-03-24 10:32 | Surgery Progress Note ---
Surgery Progress Note Date of Service Mar 24, 2017. Subjective 62 year old female admitted with gallstone pancreatitis. Overall improved, toleratedclear liquids, pain and nausea gone, NPO since midnight. Objective Vital Signs: Date Time Temp Pulse Resp B/P (MAP) Pulse Ox O2 Delivery O2 Flow Rate FiO2 03/24/17 08:00 Room Air 03/24/17 07:58 36.6 80 16 116/71 (86) 97 Room Air 03/24/17 00:21 36.6 74 18 121/71 (88) 99 Room Air 03/24/17 00:00 Room Air 03/23/17 20:00 99 Room Air 03/23/17 16:14 36.8 73 18 125/77 (93) 99 Room Air 03/23/17 16:00 Room Air General Appearance: WD/WN, no apparent distress Head: normocephalic, atraumatic Neck: supple, no adenopathy, thyroid normal, no JVD, no carotid bruits, trachea midline Respiratory/Chest: chest non-tender, lungs clear, normal breath sounds, no respiratory distress, no accessory muscle use Cardiovascular: regular rate, rhythm, no edema, no gallop, no JVD, no murmur Abdomen: normal bowel sounds, non tender, non distended, soft, no organomegaly , no pulsatile mass Extremities: normal range of motion, non-tender, normal inspection, no pedal edema, no calf tenderness, normal capillary refill, pelvis stable Laboratory Results: Results Past 24 Hours Test 03/24/17 06:43 Range/Units White Blood Count 4.15 4.8-10.8 K/uL Red Blood Count 3.74 4.2-5.4 M/uL Hemoglobin 11.3 12.0-16.0 g/dL Hematocrit 33.6 37-47 % Mean Corpuscular Volume 89.8 80-100 fL Mean Corpuscular Hemoglobin 30.2 25-34 pg Mean Corpuscular Hemoglobin Concent 33.6 32-36 g/dl Platelet Count 188 130-400 K/uL Mean Platelet Volume 9.6 7.4-10.4 fL Neutrophils (%) (Auto) 49.7 % Lymphocytes (%) (Auto) 36.4 % Monocytes (%) (Auto) 9.6 % Eosinophils (%) (Auto) 2.9 % Basophils (%) (Auto) 1.2 % Neutrophils # (Auto) 2.06 1.4-6.5 K/uL Lymphocytes # (Auto) 1.51 1.2-3.4 K/uL Monocytes # (Auto) 0.40 0.11-0.59 K/uL Eosinophils # (Auto) 0.12 0-0.5 K/uL Basophils # (Auto) 0.05 0-0.2 K/uL RDW Standard Deviation 39.6 36.4-46.3 fL RDW Coefficient of Variation 12.1 11.5-14.5 % Immature Granulocyte % (Auto) 0.2 % Immature Granulocyte # (Auto) 0.01 0.00-0.02 K/uL Sodium Level 144 136-145 mmol/L Potassium Level 3.8 3.5-5.1 mmol/L Chloride Level 107 98-107 mmol/L Carbon Dioxide Level 33 21-32 mmol/L Anion Gap 4.0 3-11 mmol/L Blood Urea Nitrogen 8 7-18 mg/dl Creatinine 0.68 0.60-1.20 mg/dl Est Creatinine Clear Calc Drug Dose 84.5 ml/min Estimated GFR () 109.4 Estimated GFR (Non- 94.4 BUN/Creatinine Ratio 11.2 10-20 Random Glucose 89 70-99 mg/dl Calcium Level 8.7 8.5-10.1 mg/dl Magnesium Level 1.9 1.8-2.4 mg/dl Total Bilirubin 0.6 0.2-1 mg/dl Direct Bilirubin 0.3 0-0.2 mg/dl Aspartate Amino Transf (AST/SGOT) 147 15-37 U/L Alanine Aminotransferase (ALT/SGPT) 468 12-78 U/L Alkaline Phosphatase 217 45-117 U/L Total Protein 6.3 6.4-8.2 gm/dl Albumin 3.2 3.4-5.0 gm/dl Lipase 124 73-393 U/L Assessment & Plan 62 year old female with gallstone pancreatitis, desires cholecystectomy. She is on the schedule for today, however if surgery will not occur until this evening then may schedule her for later in the week, possibly as outpatient. Plan: plan for laparoscopic cholecystectomy with possible intraoperative cholangiogram today risks of surgery discussed to include but not limited to bleeding, infection, damage to common bile duct, retained stone, bile leak, conversion to open, need for future or more extensive surgery, damage to surrounding structures, and risks of anesthesia. Alejo Voss DO 62 year old female with gallstone pancreatitis and incidental finding of possible 3mm side branch IPMN. She spoke with Dr. Cadet and feels reassured about the findings on MRCP, and is ready to proceed with surgery. We discussed the recommendation for laparoscopic cholecystectomy during hospital stay or in close interval follow up after episode of gallstone pancreatitis. Plan: plan for laparoscopic cholecystectomy with possible intraoperative cholangiogram tomorrow risks of surgery discussed to include but not limited to bleeding, infection, damage to common bile duct, retained stone, bile leak, conversion to open, need for future or more extensive surgery, damage to surrounding structures, and risks of anesthesia. continue clears, NPO after midnight cefoxin administration dean to OR Alejo Voss DO
--- NOTE | 2017-03-24 14:03 | Anesthesiology Progress Note ---
Anesthesia Progress Note Date of Service Mar 24, 2017. Progress Notes This is a 62 y/o w female w/cholecystitis/cholelithiasis presenting for laparoscopic cholecystectomy.PMHx is significant for Hyperlipidemia, recurrent epistaxis,and left breast cancer,s/p left partial mastectomy and s/p completion of XRTx to left breast 09/06/2016.Discussed anesthesia w/pt,risks vs benefits ,all questions answered.Informed consent obtained. ASA 2
--- NOTE | 2017-03-24 14:41 | Progress Note ---
Internal Med Progress Note Date of Service: Mar 24, 2017. Provider Documentation: SUBJECTIVE: sitting on the chair comfortably tolerating low fat diet plan for surgery tomorrow morning afebrile no abdominal pain or nausea OBJECTIVE: Vital Signs-as noted below Exam: General-alert and oriented. Not in distress ENT-normal hearing Neck-no neck masses Lungs-cta b/l no wheezing or crackles Heart-s1 and s2 heard regular rhythm, no murmurs Abdomen-soft bowel sounds present non tender no distension Extremities no edema present no erythema Neuro-alert and oriented moves extremities Lab data as noted below. ASSESSMENT & PLAN: 1. Pancreatitis Most likely gall stone pancreatitis symptoms improved on iv fluids and antiemetics MRCP no CBD stone lfts elevated on presentation improving GI and surgery on board will cut back on fluids tolerating low fat diet npo after midnight for possible surgery in am stable 2. Left breast cancer status post surgery, radiation, ongoing hormonal therapy. 3. recurrent epistaxis Recent episode this week outpatient ENT workup unremarkable Hemoglobin stable. 4. IPMN side branch 3mm on mrcp needs close followup. 4. Past tobacco abuse DVT PROPHYLAXIS scds DISPOSITION plan for discharge after lap debbie Vital Signs: Date Time Temp Pulse Resp B/P (MAP) Pulse Ox O2 Delivery O2 Flow Rate FiO2 03/24/17 08:00 Room Air 03/24/17 07:58 36.6 80 16 116/71 (86) 97 Room Air 03/24/17 00:21 36.6 74 18 121/71 (88) 99 Room Air 03/24/17 00:00 Room Air 03/23/17 20:00 99 Room Air 03/23/17 16:14 36.8 73 18 125/77 (93) 99 Room Air 03/23/17 16:00 Room Air Lab Results: Results Past 24 Hours Test 03/24/17 06:43 Range/Units White Blood Count 4.15 4.8-10.8 K/uL Red Blood Count 3.74 4.2-5.4 M/uL Hemoglobin 11.3 12.0-16.0 g/dL Hematocrit 33.6 37-47 % Mean Corpuscular Volume 89.8 80-100 fL Mean Corpuscular Hemoglobin 30.2 25-34 pg Mean Corpuscular Hemoglobin Concent 33.6 32-36 g/dl Platelet Count 188 130-400 K/uL Mean Platelet Volume 9.6 7.4-10.4 fL Neutrophils (%) (Auto) 49.7 % Lymphocytes (%) (Auto) 36.4 % Monocytes (%) (Auto) 9.6 % Eosinophils (%) (Auto) 2.9 % Basophils (%) (Auto) 1.2 % Neutrophils # (Auto) 2.06 1.4-6.5 K/uL Lymphocytes # (Auto) 1.51 1.2-3.4 K/uL Monocytes # (Auto) 0.40 0.11-0.59 K/uL Eosinophils # (Auto) 0.12 0-0.5 K/uL Basophils # (Auto) 0.05 0-0.2 K/uL RDW Standard Deviation 39.6 36.4-46.3 fL RDW Coefficient of Variation 12.1 11.5-14.5 % Immature Granulocyte % (Auto) 0.2 % Immature Granulocyte # (Auto) 0.01 0.00-0.02 K/uL Sodium Level 144 136-145 mmol/L Potassium Level 3.8 3.5-5.1 mmol/L Chloride Level 107 98-107 mmol/L Carbon Dioxide Level 33 21-32 mmol/L Anion Gap 4.0 3-11 mmol/L Blood Urea Nitrogen 8 7-18 mg/dl Creatinine 0.68 0.60-1.20 mg/dl Est Creatinine Clear Calc Drug Dose 84.5 ml/min Estimated GFR () 109.4 Estimated GFR (Non- 94.4 BUN/Creatinine Ratio 11.2 10-20 Random Glucose 89 70-99 mg/dl Calcium Level 8.7 8.5-10.1 mg/dl Magnesium Level 1.9 1.8-2.4 mg/dl Total Bilirubin 0.6 0.2-1 mg/dl Direct Bilirubin 0.3 0-0.2 mg/dl Aspartate Amino Transf (AST/SGOT) 147 15-37 U/L Alanine Aminotransferase (ALT/SGPT) 468 12-78 U/L Alkaline Phosphatase 217 45-117 U/L Total Protein 6.3 6.4-8.2 gm/dl Albumin 3.2 3.4-5.0 gm/dl Lipase 124 73-393 U/L
[2017-03-24 15:03] VITALS: BP 133/77; PULSE 81; TEMP 36.7; O2SAT 97
[2017-03-24] MEDS: ANASTROZOLE 1 MG TAB PO SCH (17:31)
[2017-03-25] VITALS (7 sets, daily range): BP systolic 105–146; BP diastolic 65–87; PULSE 68–80; TEMP 36.5–36.7; O2SAT 96–99
[2017-03-25] MEDS: LACTATED RINGER'S 1000ML 1,000 ML IV SCH (01:30)
[2017-03-25] MEDS ORDERED: CEFOXITIN IV 2,000 MG in DEXTROSE 5% 50ML 50 ML IV SCH (06:00)
[2017-03-25 06:21] LABS: BASO ABS # 0.04 K/uL (0-0.2); COMPLETE YES; EOS % 3.6 %; HEMATOCRIT 34.7 % (37-47); IG% 0.3 %; LYMPH % 42.9 %; LYMPH ABS # 1.68 K/uL (1.2-3.4); MEAN CELL VOLUME 90.4 fL (80-100); MEAN CORPUSCULAR HEMOGLOBIN 29.7 pg (25-34); MEAN CORPUSCULAR HGB CONC 32.9 g/dl (32-36); MEAN PLATELET VOLUME 10.1 fL (7.4-10.4); MONO % 8.4 %; NEUT % 43.8 %; PLATELET COUNT 207 K/uL (130-400); RED BLOOD COUNT 3.84 M/uL (4.2-5.4); WHITE BLOOD COUNT 3.92 K/uL (4.8-10.8)
[2017-03-25] MEDS: MAGNESIUM OXIDE 400 MG TAB PO SCH (06:51)
[2017-03-25] MEDS: DOCUSATE SODIUM 100 MG CAP PO SCH ×2 (06:51→19:01)
[2017-03-25 06:58] LABS: BUN/CREATININE RATIO 14.1 (10-20); CALCIUM 8.7 mg/dl (8.5-10.1); CREATININE 0.67 mg/dl (0.60-1.20); POTASSIUM 3.9 mmol/L (3.5-5.1)
--- NOTE | 2017-03-25 07:25 | Surgery Progress Note ---
Surgery Progress Note Date of Service Mar 25, 2017. Subjective 62 year old female admitted with gallstone pancreatitis. Overall improved, tolerated diet yesterday, pain and nausea gone, NPO since midnight. Objective Vital Signs: Date Time Temp Pulse Resp B/P (MAP) Pulse Ox O2 Delivery O2 Flow Rate FiO2 03/25/17 00:34 36.5 76 18 124/77 (93) 98 Room Air 03/25/17 00:00 Room Air 03/24/17 20:00 Room Air 03/24/17 16:00 Room Air 03/24/17 15:03 36.7 81 16 133/77 (95) 97 Room Air 03/24/17 08:00 Room Air 03/24/17 07:58 36.6 80 16 116/71 (86) 97 Room Air General Appearance: WD/WN, no apparent distress Head: normocephalic, atraumatic Neck: supple, no adenopathy, thyroid normal, no JVD, no carotid bruits, trachea midline Respiratory/Chest: chest non-tender, lungs clear, normal breath sounds, no respiratory distress, no accessory muscle use Cardiovascular: regular rate, rhythm, no edema, no gallop, no JVD, no murmur Abdomen: normal bowel sounds, non tender, non distended, soft, no organomegaly , no pulsatile mass Extremities: normal range of motion, non-tender, normal inspection, no pedal edema, no calf tenderness, normal capillary refill, pelvis stable Laboratory Results: Results Past 24 Hours Test 03/25/17 05:37 Range/Units White Blood Count 3.92 4.8-10.8 K/uL Red Blood Count 3.84 4.2-5.4 M/uL Hemoglobin 11.4 12.0-16.0 g/dL Hematocrit 34.7 37-47 % Mean Corpuscular Volume 90.4 80-100 fL Mean Corpuscular Hemoglobin 29.7 25-34 pg Mean Corpuscular Hemoglobin Concent 32.9 32-36 g/dl Platelet Count 207 130-400 K/uL Mean Platelet Volume 10.1 7.4-10.4 fL Neutrophils (%) (Auto) 43.8 % Lymphocytes (%) (Auto) 42.9 % Monocytes (%) (Auto) 8.4 % Eosinophils (%) (Auto) 3.6 % Basophils (%) (Auto) 1.0 % Neutrophils # (Auto) 1.72 1.4-6.5 K/uL Lymphocytes # (Auto) 1.68 1.2-3.4 K/uL Monocytes # (Auto) 0.33 0.11-0.59 K/uL Eosinophils # (Auto) 0.14 0-0.5 K/uL Basophils # (Auto) 0.04 0-0.2 K/uL RDW Standard Deviation 39.7 36.4-46.3 fL RDW Coefficient of Variation 12.1 11.5-14.5 % Immature Granulocyte % (Auto) 0.3 % Immature Granulocyte # (Auto) 0.01 0.00-0.02 K/uL Sodium Level 145 136-145 mmol/L Potassium Level 3.9 3.5-5.1 mmol/L Chloride Level 109 98-107 mmol/L Carbon Dioxide Level 31 21-32 mmol/L Anion Gap 5.0 3-11 mmol/L Blood Urea Nitrogen 9 7-18 mg/dl Creatinine 0.67 0.60-1.20 mg/dl Est Creatinine Clear Calc Drug Dose 85.7 ml/min Estimated GFR () 110.0 Estimated GFR (Non- 94.9 BUN/Creatinine Ratio 14.1 10-20 Random Glucose 92 70-99 mg/dl Calcium Level 8.7 8.5-10.1 mg/dl Magnesium Level 2.0 1.8-2.4 mg/dl Total Bilirubin 0.6 0.2-1 mg/dl Direct Bilirubin 0.2 0-0.2 mg/dl Aspartate Amino Transf (AST/SGOT) 110 15-37 U/L Alanine Aminotransferase (ALT/SGPT) 393 12-78 U/L Alkaline Phosphatase 205 45-117 U/L Total Protein 6.5 6.4-8.2 gm/dl Albumin 3.3 3.4-5.0 gm/dl Assessment & Plan 62 year old female with gallstone pancreatitis Plan: plan for laparoscopic cholecystectomy with possible intraoperative cholangiogram today risks of surgery discussed to include but not limited to bleeding, infection, damage to common bile duct, retained stone, bile leak, conversion to open, need for future or more extensive surgery, damage to surrounding structures, and risks of anesthesia. possible discharge this afternoon Alejo Voss,
[2017-03-25] MEDS ORDERED: ONDANSETRON INJ 2 MG/ML 2 ML VIAL ONE ×2 (08:10→10:08)
[2017-03-25] MEDS ORDERED: LIDOCAINE HCL 2% 2 ML VIAL (20MG/ML) ONE (08:10)
[2017-03-25] MEDS ORDERED: MIDAZOLAM HCL 1 MG/ML 2ML VIAL ONE (08:10)
[2017-03-25] MEDS ORDERED: PROPOFOL IV EMULSION 10 MG/ML 20 ML VIAL IV ONE (08:10)
[2017-03-25] MEDS ORDERED: NEOSTIGMINE METHYLSULFATE 5 MG/5 ML SYR ONE (08:10)
[2017-03-25] MEDS ORDERED: FENTANYL CITRATE INJ 50 MCG/1 ML 2 ML VIAL ONE (08:10)
[2017-03-25] MEDS ORDERED: ROCURONIUM BROMIDE 10 MG/ML 5 ML VIAL IV ONE ×2 (08:10→10:08)
[2017-03-25] MEDS ORDERED: DEXAMETHASONE SOD INJ 4 MG/ML VIAL ONE (08:10)
[2017-03-25] MEDS ORDERED: GLYCOPYRROLATE INJ 0.2 MG/ML VIAL ONE ×2 (08:10→10:08)
[2017-03-25] MEDS ORDERED: FENTANYL CITRATE INJ 50 MCG/1 ML 2 ML VIAL IV PRN (08:15)
[2017-03-25] MEDS ORDERED: ATROPINE SULFATE 0.1 MG/ML 5ML SYR IV PRN (08:15)
[2017-03-25] MEDS ORDERED: EpHEDrine SULFATE INJ 50 MG/ML AMP IV PRN (08:15)
[2017-03-25] MEDS ORDERED: HYDROmorphone INJ 1 MG/ML SYR IV PRN (08:15)
[2017-03-25] MEDS ORDERED: ONDANSETRON INJ 2 MG/ML 2 ML VIAL IV PRN (08:15)
[2017-03-25] MEDS ORDERED: OXYC-57 PO (08:46)
--- NOTE | 2017-03-25 08:46 | Discharge Instructions ---
Discharge Instructions Date of Service Mar 25, 2017. Admission Reason for Admission: Pancreatitis Discharge Discharge Diagnosis / Problem: laparoscopic cholecystectomy Discharge Goals Goal(s): Decrease discomfort Activity Recommendations Activity Limitations: as noted below Lifting Limitations: no more than 10 pounds Shower/Bathe: no limitations Driving or Machine Use: resume 3 days after discharge (if not taking percocet) . Instructions / Follow-Up Instructions / Follow-Up FOLLOWUP WITH SURGERY Dr. Voss in 2 weeks, call [phone] to schedule, [address] Salas may take ibuprofen 600 mg every 6 hours as needed in addition to Percocet FOLLOWUP WITH FAMILY DOCTOR Bernadette Troncoso M.D ON Mar AT 12:45PM FOLLOWUP WITH GI IN 6 MONTHS FOR PANCREATIC CYSTIC LESION(IPMN?) LAB: LFT'S PER FAMILY DOCTOR IN ONE WEEK Current Hospital Diet Patient's current hospital diet: Low Fat Diet Discharge Diet Recommended Diet: Low Fat Diet (for a few days) Pending Studies Studies pending at discharge: no Medical Emergencies . Who to Call and When: Medical Emergencies: If at any time you feel your situation is an emergency, please call 911 immediately. . Non-Emergent Contact Non-Emergency issues call your: Primary Care Provider, Surgeon Call Non-Emergent contact if: you have a fever, temperature is above 101.5, your pain is not controlled, wound has increased pain, you have any medication questions . "Provider Documentation" section prepared by Jonathan Steele. . VTE Core Measure Inpt VTE Proph given/why not?: SCD's [place] Drug Monitoring Program Search Results: no issues identified
[2017-03-25] MEDS ORDERED: BUPIVACAINE 0.5 % 5 MG/1 ML MPF 30ML VIAL ONE (08:49)
[2017-03-25] MEDS ORDERED: IOPAMIDOL IV ONE (09:55)
--- NOTE | 2017-03-25 10:31 | [facility] Post Operative Brief Note ---
Immediate Operative Summary Operative Date Mar 25, 2017. Pre-Operative Diagnosis Cholelithiasis Post-Operative Diagnosis Cholelithiasis Procedure(s) Performed Laparoscopic Cholecystectomy with Cholangiogram Surgeon Dr. Voss Book Retailer Surgeon(s) Tong Steele PA-C Estimated Blood Loss 5 ml Findings window of safety obtained, cholangiogram without filling defects on my read, cystic duct and artery doubly clipped and divided. Specimens A: Gallbladder and contents Drains None Anesthesia GETA Complication(s) None Disposition Recovery Room / PACU
--- NOTE | 2017-03-25 10:37 | DIAGNOSTIC IMAGING REPORT ---
INTRAOPERATIVE CHOLANGIOGRAM CLINICAL HISTORY: Cholangiogram. COMPARISON STUDY: Right upper quadrant ultrasound March 21, 2017 and MRCP March 22, 2017. FLUOROSCOPY TIME: 27.3 seconds. FINDINGS: 4 fluoroscopic images of the right upper quadrant were obtained during an intraoperative cholangiogram. No common bile duct filling defects are identified to suggest choledocholithiasis. A small amount of contrast extravasation along the undersurface of the right hepatic lobe is noted related to the injection. IMPRESSION: 1. No evidence of choledocholithiasis. 2. Small amount of contrast extravasation along the undersurface of the right hepatic lobe during the injection. Electronically signed by: Yan Veloz M.D. 03/25/2017 10:35 AM Dictated Date/Time: 03/25/2017 10:32 AM
--- NOTE | 2017-03-25 10:37 | [facility] Operative Report ---
Operative Report Operative Date Mar 25, 2017. Pre-Operative Diagnosis Cholelithiasis, recent gallstone pancreatitis Post-Operative Diagnosis Cholelithiasis, recent gallstone pancreatitis Procedure(s) Performed laparoscopic cholecystectomy with intraoperative cholangiogram Surgeon Dr. Voss Beamer Hand Surgeon(s) Tong Steele PA-C Estimated Blood Loss 5 ml Findings window of safety obtained, cholangiogram without filling defect per my read, cystic duct and artery doubly clipped and divided. Specimens A: Gallbladder and contents Drains None Anesthesia GETA Complication(s) None Disposition Recovery Room / PACU Indications Patient admitted with gallstone pancreatitis, MRCP negative, plan for laparoscopic cholecystectomy with possible intraoperative cholangiogram after pancreatitis resolved. The risks of the procedure were discussed, all questions were answered, and the patient agreed to proceed with surgery as planned. Description of Procedure The patient was properly identified, consented, and taken to the operating room where she was placed in the supine position. General endotracheal anesthesia was induced. SCDs and a safety belt were placed. Preoperative antibiotics were administered. The patient's abdomen was prepped and draped in the standard sterile fashion. A surgical timeout was performed and all parties were in agreement that this was the correct patient and procedure to be performed and we continued as planned. A curvilinear, infraumbilical incision was made with electrocautery and deepened down to the fascia with blunt dissection. The base of the umbilicus was grasped with a John and elevated towards the ceiling. An incision was made in the midline fascia with a knife and entry into the peritoneum was confirmed. Stay suture of 0 Vicryl was placed and a Gongora trocar was inserted. The abdomen was insufflated with carbon dioxide which the patient tolerated without incident. The laparoscope was inserted and no damage from initial trocar placement was noted, no gross abnormalities were noted within the 4 quadrants of the abdomen. 5 mm ports were then placed in the subxiphoid position in the midline and 2 in the right subcostal position. The patient was placed in reverse Trendelenburg position and rotated towards the left. The dome of the gallbladder was retracted towards the left upper quadrant and the infundibulum was retracted toward the right lower quadrant revealing Calot' s triangle. Peritoneal attachments were taken down with electrocautery and blunt dissection. The cystic duct and artery were circumferentially dissected. A window of safety was obtained showing the cystic duct entering the gallbladder with no aberrant structures noted. The Crocker cholangiocatheter was then used to perform an intraoperative cholangiogram which showed no filling defects per my read, and good filling of the duodenum and hepatic radicals with contrast. The cystic duct and artery were doubly clipped and divided. The gallbladder was then lifted off the gallbladder fossa with electrocautery. A few small stones were spilled and were retrieved. The gallbladder was placed in an Endo Catch bag and removed through the umbilical port site. The right upper quadrant was irrigated and hemostasis was found to be good. 5 mm trochars were removed under direct visualization and the abdomen was allowed to collapse. The umbilical port site fascia was closed with 0 Vicryl suture. The wound was irrigated, and the skin of all ports was closed with 4-0 Monocryl subcuticular sutures. Dermabond was placed over the wounds. The patient was extubated in the operating room and taken to the PACU where she recovered without apparent incident. All sponge, instrument and needle counts were correct at the conclusion of the procedure. The patient tolerated the procedure well. I attest to the content of the Intraoperative Record and any orders documented therein. Any exceptions are noted below.
--- NOTE | 2017-03-25 11:09 | Anesthesiology Progress Note ---
Anesthesia Post Op Note Date & Time Mar 25, 2017 at 11:09 Vital Signs Pain Intensity: 3 Vital Signs Past 12 Hours Date Time Temp Pulse Resp B/P (MAP) Pulse Ox O2 Delivery O2 Flow Rate FiO2 03/25/17 11:06 146/80 03/25/17 11:04 69 14 03/25/17 11:04 69 14 100 03/25/17 11:01 131/81 03/25/17 10:59 70 14 03/25/17 10:59 72 14 99 03/25/17 10:58 64 19 03/25/17 10:58 64 19 100 03/25/17 10:56 135/82 03/25/17 10:53 72 23 100 03/25/17 10:53 71 23 03/25/17 10:52 76 15 100 03/25/17 10:52 75 15 03/25/17 10:51 135/80 03/25/17 10:47 74 14 03/25/17 10:47 76 14 100 03/25/17 10:46 139/79 03/25/17 10:42 63 13 100 03/25/17 10:42 64 13 03/25/17 10:41 130/78 03/25/17 10:40 71 13 100 03/25/17 10:40 71 13 03/25/17 10:36 128/77 03/25/17 10:35 75 18 100 03/25/17 10:35 74 18 03/25/17 10:31 132/75 03/25/17 10:30 70 15 100 03/25/17 10:30 36.6 70 16 132/75 100 Oxymask 10 03/25/17 10:30 70 15 03/25/17 07:51 36.8 89 18 134/76 (95) 97 Room Air 03/25/17 07:45 Room Air 03/25/17 07:35 36.7 80 18 121/74 (90) 99 Room Air 03/25/17 00:34 36.5 76 18 124/77 (93) 98 Room Air 03/25/17 00:00 Room Air Notes Mental Status: alert / awake / arousable, participated in evaluation Pt Amnestic to Procedure: Yes Nausea / Vomiting: adequately controlled Pain: adequately controlled Airway Patency, RR, SpO2: stable & adequate BP & HR: stable & adequate Hydration State: stable & adequate Anesthetic Complications: no major complications apparent
[2017-03-25] MEDS: ONDANSETRON INJ 2 MG/ML 2 ML VIAL IV PRN ×2 (11:58→18:39)
[2017-03-25] MEDS: OXYCODONE/ACETAMINOPHEN 5-325 TAB PO PRN ×2 (12:43→18:40)
--- NOTE | 2017-03-25 14:00 | Progress Note ---
Internal Med Progress Note Date of Service: Mar 25, 2017. Provider Documentation: SUBJECTIVE: s/p lap debbie today afebrile has some nausea and mild discomfort in abdomen no chest pain or sob will try to eat later OBJECTIVE: Vital Signs-as noted below Exam: General-alert and oriented. Not in distress ENT-normal hearing Neck-no neck masses Lungs-cta b/l no wheezing or crackles Heart-s1 and s2 heard regular rhythm, no murmurs Abdomen-soft bowel sounds present s/p lap debbie no distension Extremities no edema present no erythema Neuro-alert and oriented moves extremities Lab data as noted below. ASSESSMENT & PLAN: 1. Pancreatitis Most likely gall stone pancreatitis symptoms improved on iv fluids and antiemetics MRCP no CBD stone lfts elevated on presentation improving GI and surgery on board tolerated low fat diet prior to surgery s/p lap debbie today if tolerating diet will d//c later in day otherwise in am 2. Left breast cancer status post surgery, radiation, ongoing hormonal therapy. 3. recurrent epistaxis Recent episode this week outpatient ENT workup unremarkable Hemoglobin stable. 4. IPMN side branch 3mm on mrcp needs close followup with GI 4. Past tobacco abuse DVT PROPHYLAXIS scds DISPOSITION possible d/c home today Vital Signs: Date Time Temp Pulse Resp B/P (MAP) Pulse Ox O2 Delivery O2 Flow Rate FiO2 03/25/17 12:39 36.7 80 127/79 (95) 03/25/17 12:04 68 143/81 (101) 03/25/17 11:29 36.6 69 18 146/87 (106) 98 Nasal Cannula 2.0 03/25/17 11:16 153/81 03/25/17 11:12 64 15 100 03/25/17 11:12 63 15 03/25/17 11:11 145/82 03/25/17 11:10 36.8 03/25/17 11:07 67 16 100 03/25/17 11:07 67 16 03/25/17 11:06 146/80 03/25/17 11:04 69 14 03/25/17 11:04 69 14 100 03/25/17 11:01 131/81 03/25/17 10:59 70 14 03/25/17 10:59 72 14 99 03/25/17 10:58 64 19 03/25/17 10:58 64 19 100 03/25/17 10:56 135/82 03/25/17 10:53 72 23 100 03/25/17 10:53 71 23 03/25/17 10:52 76 15 100 03/25/17 10:52 75 15 03/25/17 10:51 135/80 03/25/17 10:47 74 14 03/25/17 10:47 76 14 100 03/25/17 10:46 139/79 03/25/17 10:42 63 13 100 03/25/17 10:42 64 13 03/25/17 10:41 130/78 03/25/17 10:40 71 13 100 03/25/17 10:40 71 13 03/25/17 10:36 128/77 03/25/17 10:35 75 18 100 03/25/17 10:35 74 18 03/25/17 10:31 132/75 03/25/17 10:30 70 15 100 03/25/17 10:30 36.6 70 16 132/75 100 Oxymask 10 03/25/17 10:30 70 15 03/25/17 07:51 36.8 89 18 134/76 (95) 97 Room Air 03/25/17 07:45 Room Air 03/25/17 07:35 36.7 80 18 121/74 (90) 99 Room Air 03/25/17 00:34 36.5 76 18 124/77 (93) 98 Room Air 03/25/17 00:00 Room Air 03/24/17 20:00 Room Air 03/24/17 16:00 Room Air 03/24/17 15:03 36.7 81 16 133/77 (95) 97 Room Air Lab Results: Results Past 24 Hours Test 03/25/17 05:37 Range/Units White Blood Count 3.92 4.8-10.8 K/uL Red Blood Count 3.84 4.2-5.4 M/uL Hemoglobin 11.4 12.0-16.0 g/dL Hematocrit 34.7 37-47 % Mean Corpuscular Volume 90.4 80-100 fL Mean Corpuscular Hemoglobin 29.7 25-34 pg Mean Corpuscular Hemoglobin Concent 32.9 32-36 g/dl Platelet Count 207 130-400 K/uL Mean Platelet Volume 10.1 7.4-10.4 fL Neutrophils (%) (Auto) 43.8 % Lymphocytes (%) (Auto) 42.9 % Monocytes (%) (Auto) 8.4 % Eosinophils (%) (Auto) 3.6 % Basophils (%) (Auto) 1.0 % Neutrophils # (Auto) 1.72 1.4-6.5 K/uL Lymphocytes # (Auto) 1.68 1.2-3.4 K/uL Monocytes # (Auto) 0.33 0.11-0.59 K/uL Eosinophils # (Auto) 0.14 0-0.5 K/uL Basophils # (Auto) 0.04 0-0.2 K/uL RDW Standard Deviation 39.7 36.4-46.3 fL RDW Coefficient of Variation 12.1 11.5-14.5 % Immature Granulocyte % (Auto) 0.3 % Immature Granulocyte # (Auto) 0.01 0.00-0.02 K/uL Sodium Level 145 136-145 mmol/L Potassium Level 3.9 3.5-5.1 mmol/L Chloride Level 109 98-107 mmol/L Carbon Dioxide Level 31 21-32 mmol/L Anion Gap 5.0 3-11 mmol/L Blood Urea Nitrogen 9 7-18 mg/dl Creatinine 0.67 0.60-1.20 mg/dl Est Creatinine Clear Calc Drug Dose 85.7 ml/min Estimated GFR () 110.0 Estimated GFR (Non- 94.9 BUN/Creatinine Ratio 14.1 10-20 Random Glucose 92 70-99 mg/dl Calcium Level 8.7 8.5-10.1 mg/dl Magnesium Level 2.0 1.8-2.4 mg/dl Total Bilirubin 0.6 0.2-1 mg/dl Direct Bilirubin 0.2 0-0.2 mg/dl Aspartate Amino Transf (AST/SGOT) 110 15-37 U/L Alanine Aminotransferase (ALT/SGPT) 393 12-78 U/L Alkaline Phosphatase 205 45-117 U/L Total Protein 6.5 6.4-8.2 gm/dl Albumin 3.3 3.4-5.0 gm/dl
[2017-03-25] MEDS ORDERED: ONDA4TAB65 PO (14:24)
[2017-03-25] MEDS: ANASTROZOLE 1 MG TAB PO SCH (17:34)
--- NOTE | 2017-04-02 12:47 | Discharge Summary ---
Discharge Summary Date of Service Apr 02, 2017. Discharge Summary Admission Date: Mar 21, 2017 at 22:14 Discharge Date: Mar 25, 2017 Discharge Disposition: Home Principal Diagnosis: gall stone pancreatitis IPMN Secondary Diagnoses/Problems: breast cancer L status post radiation, ongoing hormonal therapy, hyperlipidemia, recurrent epistaxis and past tobacco abuse. Procedures: GALL BLADDER US; 1. Cholelithiasis with equivocal findings for cholecystitis. The presence of extrahepatic biliary ductal dilatation could suggest distal biliary obstruction, although choledocholithiasis not sonographically apparent. Further evaluation with MRCP could be considered. If there is continuing clinical concern for cholecystitis, nuclear medicine hepatobiliary scan could be obtained. MRCP: 1. Cholelithiasis and pericholecystic fluid. 2. No ductal dilatation. No common bile duct calculi identified. 3. 5.3 cm right renal cyst 4. 3 mm cyst within the pancreatic head, likely are presenting a side branch IPMN Consultations: GI GENERAL SURGERY Medication Reconciliation New Medications: Ondansetron Hcl (Zofran) 4 Mg Tab 1 TAB PO Q4H PRN for nausea for 3 Days, #15 TAB 2 Refills Oxycodone/Acetaminophen 5MG/325MG (Percocet 5MG/325MG) Tab 1-2 TABLETS PO Q4H PRN for Pain, #30 TAB Continued Medications: Anastrozole (Arimidex) 1 Mg Tab 1 MG PO QPM, TAB Atorvastatin (Lipitor) 10 Mg Tab 1 TAB PO DAILY for 30 Days, #30 TAB 5 Refills Cholecalciferol (Vitamin D3) 2,000 Unit Cap 2000 INTER.UNIT PO DAILY, CAP 3 Refills Admission Information HPI (per Admitting provider): Medical history is significant for breast cancer L status post radiation, ongoing hormonal therapy, hyperlipidemia, recurrent epistaxis and past tobacco abuse. A few days ago the patient noted epigastric discomfort, achy, going to her back , with nausea and vomiting. Good bowel movement. No fever, some chills. She denies fatty food intake. Symptoms resolved overnight. Patient held off on going to the ER for evaluation because a contemplated trip to [place] this weekend Patient had recurrence of discomfort today, but not as intense. In retrospect, px reckons she has had intermittent, self-limiting episodes of discomfort over the last 2 days usually associated with fatty food intake. Patient decided to go to the Emergency Room. Physical Exam (per Admitting): VITAL SIGNS: Blood pressure was noted to be 106/64, pulse rate 90, RR 18 temperature 36.6 and sats 97 on room air. GENERAL: Noted to be pleasant, in no respiratory distress. Looks younger for stated age. SKIN: Normal color. HEENT: [place] palpebral conjunctivae. Dry mucosa. NECK: No JVD. Supple. CHEST: Clear to auscultation. HEART: Regular rate and rhythm. ABDOMEN: Some distention. No overt tenderness. EXTREMITIES: No edema. No tenderness NEUROLOGIC: No gross focality. Hospital Course 1. Pancreatitis Most likely gall stone pancreatitis symptoms improved on iv fluids and antiemetics MRCP no CBD stone lfts elevated on presentation improving GI and surgery on board tolerated low fat diet prior to surgery s/p lap debbie today if tolerating diet will d//c later in day otherwise in am 2. Left breast cancer status post surgery, radiation, ongoing hormonal therapy. 3. recurrent epistaxis Recent episode this week outpatient ENT workup unremarkable Hemoglobin stable. 4. IPMN side branch 3mm on mrcp needs close followup with GI 4. Past tobacco abuse DVT PROPHYLAXIS scds DISPOSITION possible d/c home today Total time spent on discharge = 35MINUTES This includes examination of the patient, discharge planning, medication reconciliation, and communication with other providers. Discharge Instructions Discharge Instructions Date of Service Mar 25, 2017. Admission Reason for Admission: Pancreatitis Discharge Discharge Diagnosis / Problem: laparoscopic cholecystectomy Discharge Goals Goal(s): Decrease discomfort Activity Recommendations Activity Limitations: as noted below Lifting Limitations: no more than 10 pounds Shower/Bathe: no limitations Driving or Machine Use: resume 3 days after discharge (if not taking percocet) . Instructions / Follow-Up Instructions / Follow-Up FOLLOWUP WITH SURGERY Dr. Voss in 2 weeks, call [phone] to schedule, [address] Salas may take ibuprofen 600 mg every 6 hours as needed in addition to Percocet FOLLOWUP WITH FAMILY DOCTOR Bernadette Troncoso M.D ON Mar AT 12:45PM FOLLOWUP WITH GI IN 6 MONTHS FOR PANCREATIC CYSTIC LESION(IPMN?) LAB: LFT'S PER FAMILY DOCTOR IN ONE WEEK Current Hospital Diet Patient's current hospital diet: Low Fat Diet Discharge Diet Recommended Diet: Low Fat Diet (for a few days) Pending Studies Studies pending at discharge: no Medical Emergencies . Who to Call and When: Medical Emergencies: If at any time you feel your situation is an emergency, please call 911 immediately. . Non-Emergent Contact Non-Emergency issues call your: Primary Care Provider, Surgeon Call Non-Emergent contact if: you have a fever, temperature is above 101.5, your pain is not controlled, wound has increased pain, you have any medication questions . "Provider Documentation" section prepared by Jonathan Steele. . VTE Core Measure Inpt VTE Proph given/why not?: SCD's [place] Drug Monitoring Program Search Results: no issues identified
== END 2017-03-25 20:05 | disposition home or self-care (01) | DRG 417 ==
LOC: C.EDB 18:44 → C.4E 22:14 → ENRESERV 22:32
PROVIDERS: ADMIT Internal Medicine; ATTEND Internal Medicine
PROC: 0FT44ZZ Resection of Gallbladder, Percutaneous Endoscopic Approach (ICD-10-PCS; principal; 2017-03-25 08:45)
DX: K80.20 Calculus of gallbladder without cholecystitis without obstruction (principal); K85.10 Biliary acute pancreatitis without necrosis or infection; D13.6 Benign neoplasm of pancreas; E78.00 Pure hypercholesterolemia, unspecified; Z87.891 Personal history of nicotine dependence; Z79.899 Other long term (current) drug therapy; Z85.3 Personal history of malignant neoplasm of breast; Z92.3 Personal history of irradiation; Z80.3 Family history of malignant neoplasm of breast